=== PATIENT | male | born 1980 | race Caucasian/White ===

== ENCOUNTER 2019-03-12 14:14 | Emergency (ER) | payer OTHER, BC, SELFPAY ==
[2019-03-12 14:15] VITALS: BP 192/121; PULSE 90; RESP 18; TEMP 36.7; O2SAT 97; BMI 40.9
--- NOTE | 2019-03-12 14:30 | CT_ITS ---
STUDY: CT BRAIN WITHOUT CONTRAST REASON FOR EXAM: Male, 38 years old. Headache after a fall RADIATION DOSAGE (If Supplied By Facility): CTDIvol = ( 44.99 ) mGy, DLP = ( 829.85 ) mGycm TECHNIQUE: Transaxial CT imaging of the brain was performed without administration of intravenous contrast material. Individualized dose optimization techniques were used for this CT. COMPARISON: No relevant priors. FINDINGS: Normal soft tissue structures. Normal calvarium. Normal size ventricles and extra-axial spaces for the patient's age. Normal white matter tracts of the cerebral hemispheres. Normal basal ganglia and thalami. Normal brainstem. Normal cerebellum. Tal cisterna magna noted. There is no intracranial hemorrhage. There are no findings of an acute ischemic infarction. Normal visualized paranasal sinuses. CT/Brain/Head without Contrast IMPRESSION: No acute intracranial abnormalities Electronically Signed: Devonte Pacheco MD at 15:16 EDT , Service support ,
--- NOTE | 2019-03-12 14:30 | CT_ITS ---
STUDY: CT FACIAL BONES WITHOUT CONTRAST REASON FOR EXAM: Male, 38 years old. Pain after a fall RADIATION DOSAGE (If Supplied By Facility): CTDIvol = ( 29.38 ) mGy, DLP = ( 547.46 ) mGycm TECHNIQUE: The patient was scanned in a multi detector CT scanner. Sagittal and coronal images were reconstructed. Individualized dose optimization techniques were used for this CT. COMPARISON: None. FINDINGS: Normal soft tissue structures. Normal orbital meza and orbital contents. Normal nasal bones and anterior nasal spine. Normal facial bones. There is no demonstrated fracture. Opacification of the right maxillary sinus noted. The right maxillary sinus is underdeveloped. CT/Sinus/Facial Bone IMPRESSION: No demonstrated facial fracture or suspicious soft tissue swelling Underdeveloped right maxillary sinus with opacification of the right maxillary sinus noted. Electronically Signed: Devonte Pacheco MD at 15:18 EDT , Service support ,
--- NOTE | 2019-03-12 14:30 | RAD_ITS ---
STUDY: X-RAY - RIGHT HAND REASON FOR EXAM: Male, 38 years old. Fourth digit pain TECHNIQUE: 3 view(s) of the hand. COMPARISON: None. FINDINGS: Normal radiocarpal articulation. Normal distal radioulnar joint. Normal visualized carpal bones. Normal carpal articulations Normal carpometacarpal articulation of the thumb. Normal second through fifth carpometacarpal joints. Normal metacarpi. Old healed fifth metacarpal fracture Normal metacarpophalangeal joint of the thumb. Normal interphalangeal joint of the thumb. Normal proximal and distal phalanges of the thumb. Normal metacarpophalangeal joints of the second through fifth fingers. Normal proximal and distal interphalangeal joints of the second through fifth fingers. Normal phalanges of the second through fifth fingers. The soft tissue structures are unremarkable. RAD/Hand Min 3 Views IMPRESSION: Old healed boxer's fracture, no acute findings Electronically Signed: Devonte Pacheco MD at 15:12 EDT , Service support ,
--- NOTE | 2019-03-12 14:31 | ED.DCSUM_ITS ---
History of Present Illness Chief Complaint: Trauma Informant: Patient Onset: Today Narrative: Fall off a working truck prior to arrival. The back of the truck with gait custodial open, was going over a bump when the gate open with him falling out. He tried holding on, right ankle caught in the chain, he hit the back of his head and his left face. No loss of conscious. No visual changes. No nausea or vomiting. Complains of right hand pain and right ankle pain. History of skull surgery in the past due to overgrowth causing compression. Came by private vehicle. No allergies. Past Medical History - Allergies and Home Meds Allergies/Adverse Reactions: Allergies No Known Allergies Allergy (Verified 03/12/19 14:19) Primary Care Physician: NOT,DEFINED [NON-STAFF] - Review of Systems General: Denies: Chills, Fever, Sweats Eyes: Denies: Visual changes - bilaterally, Diplopia ENT: Denies: Rhinorrhea, Sore throat Cardiovascular: Denies: Chest pain, Palpitations Respiratory: Denies: Dyspnea, Cough, Dyspnea on exertion Gastrointestinal: Denies: Abdominal pain, Nausea, Vomiting, Diarrhea, Melena, Hematochezia Genitourinary: Denies: Dysuria, Hematuria, Frequency Musculoskeletal: Reports: Arthralgias. Denies: Back pain, Extremity Pain Skin: Denies: Rash, Wounds Neurological: Denies: Headache, Weakness, Numbness Physical Exam Vital Signs/Narrative: Vital Signs Temp Pulse Resp BP Pulse Ox 03/12/19 14:15 98.1 F 90 18 192/121 H 97 Inital Vital Signs reviewed: Yes General: Well nourished, Well developed, No Acute Distress Head: Normocephalic, Tenderness, - - Tender palpation at the crown with no depression. There is soft tissue depression left frontal that is chronic. No hemotympanum. No cervical neck tenderness. There is minimal tenderness at the left zygomatic region. No proptosis or entrapment. Eyes: Perrl, EOMI ENT: Moist mucous membranes, No rhinorrhea Neck: Supple, Nontender Cardiovascular: Regular rate, Regular rhythm, No murmurs Respiratory: No distress, CTA bilaterally, Chest nontender Abdomen: Soft, Nontender, Nondistended, Normal bowel sounds Back: Nontender, Normal Inspection Extremities: No edema, - - Right upper extremity: Abrasion at the elbow with no tenderness. Abrasion at distal forearm, no bleeding. There is tender palpation distal fourth MCP with no deformities. Skin intact. Right lower extremity: Tender palpation lateral malleolus with slight swelling. Skin intact. No foot tenderness. No knee tenderness. Neurovascular intact distally. Skin: Normal color, - - See above for abrasions, also additional abrasion right flank region, nontender, no bleeding. Neurological: Alert, Oriented x3, Cranial nerves II-XII grossly intact, Normal Strength, Normal Sensation Psychological: Normal affect, Normal Mood Diagnostic/Tx/Re-eval Clinical Impression(s) from Imaging Studies Brain CT 03/12/19 14:30 IMPRESSION: No acute intracranial abnormalities Electronically Signed: Devonte Pacheco MD at 15:16 EDT , Service support , Facial/Sinus 03/12/19 14:30 IMPRESSION: No demonstrated facial fracture or suspicious soft tissue swelling Underdeveloped right maxillary sinus with opacification of the right maxillary sinus noted. Electronically Signed: Devonte Pacheco MD at 15:18 EDT , Service support , Hand X-Ray 03/12/19 14:30 IMPRESSION: Old healed boxer's fracture, no acute findings Electronically Signed: Devonte Pacheco MD at 15:12 EDT , Service support , Ankle X-Ray 03/12/19 14:45 IMPRESSION: Normal x-ray examination of the ankle. Electronically Signed: Devonte Pacheco MD at 15:12 EDT , Service support , Patient treated with oxycodone in the ED. Image studies of the head and face negative. Right hand and right ankle also negative for fracture or dislocation. There is old boxer's fracture right hand. Aircast provided for right ankle. Patient has Motrin at home to use every 6 hours as needed. Appropriate work restrictions were given. Follow-up with [facility]. All questions were answered. ED Disposition - Plan for ED Patient: Disposition: Home or Assisted Living Diagnosis: Closed head injury, Contusion of right hand, Right ankle sprain, Abrasions of multiple sites Instructions: HEAD INJURY, No Wake-Up (Adult), CONTUSION, Hand, Sprain, Ankle, with X-Ray, Abrasion Referrals: NOT,DEFINED [NON-STAFF] - [facility] [GROUP OF PHYSICIANS] - 2 Days Additional Instructions: CT head and face negative. X-ray right hand and right ankle are negative. Use ibuprofen 600 mg every 6 hours as needed.
[2019-03-12] MEDS: oxyCODONE 5 MG Tablet PO (14:40)
--- NOTE | 2019-03-12 14:45 | RAD_ITS ---
STUDY: X-RAY - RIGHT ANKLE REASON FOR EXAM: Male, 38 years old. Pain TECHNIQUE: 3 view(s) of the ankle. COMPARISON: None. FINDINGS: Normal visualized distal tibia and fibula. Normal medial and lateral malleoli. Normal tibiotalar articulation and ankle mortise. Normal visualized talus and calcaneus. The visualized subtalar, talonavicular, calcaneocuboid and tarsal articulations are normal. The soft tissue structures are unremarkable. RAD/Ankle min 3 Views IMPRESSION: Normal x-ray examination of the ankle. Electronically Signed: Devonte Pacheco MD at 15:12 EDT , Service support ,
== END 2019-03-12 16:56 | disposition home or self-care (01) ==
PROVIDERS: Emergency Provider Emergency Medicine
DX: S09.90XA Unspecified injury of head, initial encounter (principal); S60.221A Contusion of right hand, initial encounter; S93.401A Sprain of unspecified ligament of right ankle, initial encounter; S50.311A Abrasion of right elbow, initial encounter; S50.811A Abrasion of right forearm, initial encounter; S30.811A Abrasion of abdominal wall, initial encounter; V89.9XXA Person injured in unspecified vehicle accident, initial encounter; Y93.9 Activity, unspecified; Y92.9 Unspecified place or not applicable
CPT/HCPCS: 70450; 70486; 73130; 73610; 99284

== ENCOUNTER → 2019-04-14 07:09 | Outpatient (CLI) | payer OTHER, SELFPAY ==
[2019-03-28 10:06] VITALS: BMI 40.9
--- NOTE | 2019-04-14 07:10 | MRI_ITS ---
STUDY: MRI RIGHT ANKLE WITHOUT CONTRAST REASON FOR EXAM: Male, 38 years old. Ankle pain and swelling TECHNIQUE: Standardized fat and water weighted pulse sequences were obtained in all 3 orthogonal planes. COMPARISON: X-ray 03/12/2019 FINDINGS: Normal subcutis adipose space. Normal posterior tibialis tendon. Normal flexor digitorum longus tendon. Normal flexor hallucis longus tendon. Normal peroneus longus and brevis tendons. Normal tibialis anterior tendon. Normal extensor hallucis longus tendon. Normal extensor digitorum longus tendons. Normal Achilles tendon and teno-osseous insertion. Normal plantar fascia. Normal plantar calcaneal tubercles. Normal intrinsic muscles of the rearfoot. Normal distal tibiofibular syndesmotic ligamentous complex. Normal lateral ligamentous complex. Normal subtalar ligaments and sinus tarsi. Normal deltoid ligamentous complexes. Normal plantar calcaneonavicular (spring) ligament. Nondisplaced circular fracture of the subchondral anterior tibia with surrounding contusion. Normal talar dome. Normal subtalar articulations. Normal talonavicular articulation. Normal calcaneocuboid articulation. Normal navicular-cuneiform articulations. MRI/Lower Ext Joint Only (Routine) IMPRESSION: Nondisplaced circular fracture of the subchondral anterior tibia with surrounding contusion. Electronically Signed: Juvenal Felix MD at 9:13 EDT Tel , Service support ,
== END ==
PROVIDERS: Referring Provider Physician Assistant Surgical; Visit Provider Physician Assistant Surgical
DX: S93.401A Sprain of unspecified ligament of right ankle, initial encounter (principal)
CPT/HCPCS: 73721

== ENCOUNTER → 2019-06-05 09:23 | Outpatient (CLI) | payer OTHER, SELFPAY ==
[2019-06-05 09:07] VITALS: BMI 40.9
--- NOTE | 2019-06-05 09:26 | RAD_ITS ---
STUDY: X-RAY - RIGHT ANKLE REASON FOR EXAM: Follow-up fracture. TECHNIQUE: 3 view(s) of the ankle. COMPARISON: Radiographs 03/12/2019. 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 Normal visualized distal tibia and fibula. Normal medial and lateral malleoli. Normal tibiotalar articulation and ankle mortise. Normal visualized talus and calcaneus. The visualized subtalar, talonavicular, calcaneocuboid and tarsal articulations are normal. There is mild soft tissue swelling. 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 Electronically Signed: Stephen Reeder MD at 13:26 EDT Tel , Service support ,
== END ==
PROVIDERS: Referring Provider Orthopaedic Surgery; Visit Provider Orthopaedic Surgery
DX: S93.401A Sprain of unspecified ligament of right ankle, initial encounter (principal); S82.201A Unspecified fracture of shaft of right tibia, initial encounter for closed fracture
CPT/HCPCS: 73610

== ENCOUNTER → 2019-06-05 13:27 | Outpatient (CLI) | payer OTHER, SELFPAY ==
[2019-06-05 09:07] VITALS: BMI 40.9
--- NOTE | 2019-06-05 13:30 | VDLE_ITS ---
Reason For Study: pain RIGHT GSV is normal. CFV is compressible, spontaneous, phasic, competent and demonstrates normal augmentation. FV is compressible, spontaneous, phasic, competent and demonstrates normal augmentation. POP V is compressible, spontaneous, phasic, competent and demonstrates normal augmentation. T/P Trunk is compressible. PTV is compressible. Peroneal Vein is dilated and noncompressible. Procedure Exam performed in department. The exam was diagnostic. A preliminary report was called and/or faxed to Dr. Romero. Interpretation Summary Right great saphenous vein appears patent and compressible segmentally. Acute deep venous thrombosis right peroneal vein. Ordering Physician: Barbara Romero Performed By: Tate Donahue RVT
== END ==
PROVIDERS: Referring Provider Orthopaedic Surgery; Visit Provider Orthopaedic Surgery
DX: S82.201A Unspecified fracture of shaft of right tibia, initial encounter for closed fracture (principal); S93.401A Sprain of unspecified ligament of right ankle, initial encounter
CPT/HCPCS: 73610; 93971

== ENCOUNTER 2019-06-08 12:21 | Emergency (ER) | payer OTHER, BC, SELFPAY ==
[2019-06-05 09:07] VITALS: BMI 40.9
[2019-06-08 12:23] VITALS: BP 216/147; PULSE 98; RESP 22; TEMP 36.8; O2SAT 95; BMI 41.3
--- NOTE | 2019-06-08 12:54 | RAD_ITS ---
STUDY: X-RAY - RIGHT ANKLE REASON FOR EXAM: Male, 38 years old. Right ankle pain after falling this morning TECHNIQUE: 3 view(s) of the ankle. COMPARISON: 06/05/2019 FINDINGS: There is diffuse osteopenia. Normal medial and lateral malleoli. Normal tibiotalar articulation and ankle mortise. Obliquely oriented fracture of the superior posterior calcaneus is new since 3 days previous. There is approximately 6 mm of displacement. The visualized subtalar, talonavicular, calcaneocuboid and tarsal articulations are normal. There is soft tissue swelling of the posterior ankle including anterior to the Achilles tendon. RAD/Ankle min 3 Views IMPRESSION: 1. Avulsion fracture (new) of the superior/posterior calcaneus with moderate displacement. 2. Osteopenia. Electronically Signed: Wolf Caraballo MD ([place]) at 13:40 EDT , Service support ,
[2019-06-08] MEDS: Morphine 4 MG/ML Syringe IM (13:15)
--- NOTE | 2019-06-08 14:53 | ED.VISSUMM ---
- ER Visit Summary Date of Service: 06/08/19 Chief Complaint: Right ankle pain History of Present Illness: The patient is a 38 M who presents with right ankle pain that began today. Patient states he had a recent fracture of his ankle and had his cast removed recently. Patient was placed in a walking boot. Patient states he was allowed to start weightbearing as tolerated recently. Patient states today he put some weight on his foot and felt a pop in his right ankle. Patient is concerned that he tore his Achilles tendon. Patient states the pain is sharp and aching. Patient states the pain is worse with movement. Patient admits to some tingling in his toes. Patient admits to some swelling. Patient is on Xarelto for DVT in his right leg. Physical Examination: Vital signs are stable except for an elevated blood pressure of 216/147. Patient is afebrile. Patient is in no acute distress. Musculoskeletal exam reveals tenderness over the posterior aspect of the right ankle. There is tenderness over the Achilles tendon and calcaneus. There is no obvious deformity noted. There is pain with squeezing his calf. Patient states that his DVT is in that area. Patient also states that he has pain in his Achilles area when I squeeze his calf. The calcaneus and heel appears to move when I squeeze his calf. Pedal pulses are equal bilaterally. Sensation is intact to light touch in all digits. Capillary refill is less than 2 seconds in all digits. Test Results: X-rays of the right ankle were obtained. There is an avulsion fracture of the calcaneus. This was interpreted by the radiologist and reviewed by myself. Emergency Department Course and Treatment: Patient was given an injection of morphine here. Patient was still having pain. Patient was given a dose of oxycodone. Case was discussed with Dr. Vail who is covering for Dr. Romero. He recommended placing the patient and a posterior splint with plantarflexion. Patient will follow-up with Dr. Romero in 2 to 3 days. Patient was placed in a well-padded posterior splint using 4 inch Ortho-Glass. Patient was placed in as much plantarflexion as he could tolerate. Patient was given a prescription for a short course of Percocet. Patient understood and was agreeable with the plan. All questions were answered. Disposition: Discharge home Impression: 1. Avulsion fracture right calcaneus This note was generated with [employer] dictation software. It may contain incorrect words, spelling, and punctuation that were not noted in review of the chart prior to signing ED Disposition - Plan for ED Patient: Disposition: Home or Assisted Living Diagnosis: Avulsion fracture of right calcaneus Instructions: FRACTURE, Lower Extremity Prescriptions: Oxycodone HCl/Acetaminophen [Percocet 5/325] 1 tab PO Q6H PRN PRN 3 Days #12 tab PRN Reason: Pain Prescription Printed Referrals: Care Physician,No Primary [Primary Care Provider] - Barbara Romero DO [STAFF PHYSICIAN] - 2 Days Additional Instructions: No weightbearing on your right leg until cleared by Dr. Martines
[2019-06-08] MEDS: oxyCODONE 5 MG Tablet PO (15:16)
[2019-06-08 15:21] VITALS: PULSE 94; RESP 17; O2SAT 98
== END 2019-06-08 15:23 | disposition home or self-care (01) ==
PROVIDERS: Emergency Provider Emergency Medicine
DX: S92.001A Unspecified fracture of right calcaneus, initial encounter for closed fracture (principal); X58.XXXA Exposure to other specified factors, initial encounter; Y93.9 Activity, unspecified; Y92.9 Unspecified place or not applicable; R51 Headache; E66.9 Obesity, unspecified; Z86.718 Personal history of other venous thrombosis and embolism; Z79.01 Long term (current) use of anticoagulants
CPT/HCPCS: 29515; 73610; 96372; 99283

== ENCOUNTER → 2019-07-08 09:22 | Outpatient (CLI) | payer OTHER, SELFPAY ==
[2019-06-10 13:39] VITALS: BMI 41.3
--- NOTE | 2019-07-08 10:00 | MRI_ITS ---
STUDY: MRI RIGHT ANKLE WITHOUT CONTRAST REASON FOR EXAM: Male, 38 years old. Calcaneal fracture TECHNIQUE: Standardized fat and water weighted pulse sequences were obtained in all 3 orthogonal planes. COMPARISON: X-ray 06/08/2019, MRI 04/14/2019 FINDINGS: Normal subcutis adipose space. There is tenosynovitis of the posterior tibialis tendon sheath with an intrinsic normal tendon. Normal flexor digitorum longus tendon. Normal flexor hallucis longus tendon. Normal peroneus longus and brevis tendons. Normal tibialis anterior tendon. Normal extensor hallucis longus tendon. Normal extensor digitorum longus tendons. Insertional Achilles tendinitis but no partial thickness tear. Associated edema of Kager's fat pad consistent with peritendinosis. Acute avulsion fracture of the posterior calcaneus at the Achilles tendon insertion. Normal plantar fascia. Normal plantar calcaneal tubercles. Normal intrinsic muscles of the rearfoot. Normal distal tibiofibular syndesmotic ligamentous complex. There is a complete rupture of the anterior talofibular ligament (ATFL). Normal subtalar ligaments and sinus tarsi. Normal deltoid ligamentous complexes. Normal plantar calcaneonavicular (spring) ligament. Healing nondisplaced fracture line of the anterior aspect of the distal tibia at the tibiotalar joint with spurring of the fracture lines. Normal talar dome. Normal subtalar articulations. Normal talonavicular articulation. Normal calcaneocuboid articulation. Normal navicular-cuneiform articulations. MRI/Lower Ext Joint Only (Routine) IMPRESSION: 1. Acute avulsion of the posterior calcaneal tubercle at the Achilles tendon insertion with insertional Achilles tendinitis and peritendinitis. 2. Complete tear of the anterior talofibular ligament. 3. Healing nondisplaced fracture of the anterior aspect of the distal tibia at the tibiotalar joint. Electronically Signed: Juvenal Felix MD at 11:10 EST Tel , Service support ,
== END ==
PROVIDERS: Referring Provider Podiatrist; Visit Provider Podiatrist
DX: S92.001A Unspecified fracture of right calcaneus, initial encounter for closed fracture (principal); S96.911A Strain of unspecified muscle and tendon at ankle and foot level, right foot, initial encounter; S09.90XD Unspecified injury of head, subsequent encounter; S60.221D Contusion of right hand, subsequent encounter; S90.511D Abrasion, right ankle, subsequent encounter
CPT/HCPCS: 73721; 97110

== ENCOUNTER → 2019-07-23 13:49 | Outpatient (CLI) | payer OTHER, SELFPAY ==
[2019-06-10 13:39] VITALS: BMI 41.3
--- NOTE | 2019-07-23 13:52 | VDLE_ITS ---
Reason For Study: Re-check blood clot RIGHT GSV is normal. CFV is compressible, spontaneous, phasic, competent and demonstrates normal augmentation. FV is compressible, spontaneous, phasic, competent and demonstrates normal augmentation. POP V is compressible, spontaneous, phasic, competent and demonstrates normal augmentation. T/P Trunk is compressible. PTV is compressible. Peroneal vein is now compressible. Procedure Exam performed in department. Compared to study done on 06/05/19. A preliminary report was called and/or faxed to Nick. Interpretation Summary There is no evidence of right lower extremity deep vein thrombosis. Right great saphenous vein appears patent and compressible segmentally. Resolved right peroneal deep venous thrombosis from previous examination of June 05, 2019 Ordering Physician: Barbara Romero Performed By: Sarah Martinez RVT
== END ==
PROVIDERS: Referring Provider Orthopaedic Surgery; Visit Provider Orthopaedic Surgery
DX: S82.201A Unspecified fracture of shaft of right tibia, initial encounter for closed fracture (principal); S93.401A Sprain of unspecified ligament of right ankle, initial encounter
CPT/HCPCS: 93971

== ENCOUNTER 2019-10-14 11:00 | Outpatient (RCR) | payer OTHER, BC, SELFPAY ==
[2019-03-28 10:06] VITALS: BMI 40.9
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
--- NOTE | 2019-04-08 17:12 | HP.OTEVAL ---
Patient's Visit Information KELTON FLOYD is a 38 year old M, referred to Occupational Therapy by DAYRON Blair, with a diagnosis of contusion R hand. 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 Pt continues to be independent with BADL tasks. Lives w/ spouse and has 2 twin girls to care for. Pt R hand domient. Pt states limited with opening variety of containers secondary to pain in R RF. Pt states R RF is always hurting 7-8/10 pain PIP joint. Pt had x-ray R RF, states not broke. Pt shys away from bending and using R RF for all tasks. - Pain R RF 8 Pain Intensity Range: 7, 8 - Objective Objective/Observation: Limited ROM R RF, decreased strength and functional use of R hand, RF - ROM ROM Comments: R RF AROM MP 0'/86' PIP -20/42' DIP 0'/5'. 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 Goal:: Pt will progress w/ AROM R RF PIP joint extension from -20' to 0' and PIP flexion by 25' to increase indep w/ BADL tasks. Goal:: Pt will demo no pain with movement greater than 1/10 by d/c from OT services. Goal:: Pt will be educated on R UE HEP with good understanding and demo 100%x - Rehabilitation General Assessment: Pt demo limited ROM and strength R hand and R RF. Pt has increased pain with all movement of R RF PIP joint. Pt would benefit from direct occupational therapy services to decrease pain with movement of R RF, increase ROM R RF PIP joint, increase strength R hand to increase pts quality of life and return to work. 3x/wk x 4wks Rehabilitation Potential: Good - Anticipated Interventions Anticipated Interventions: A/AAROM/PROM, Strengthening, Edema Control, Massage, Modalities, Orthoses, Joint Protection/Energy Conservation, Fine Motor Coord/Rosalio, ADL Training, Education re assistive Equipment, Education re Diagnosis, Home Program - Visit Plan Frequency: 3x /Week Duration: 4 Weeks General Plan: increase ROM R RF PIP, increase strength R hand, decrease pain and edema R RF, educate on HEP 3x/wk x 4wks TEXT: Thank you for the opportunity to evaluate your patient. For Medicare and Medicare HMO plans, please review the plan of care and approve it. It will need to be FAXED BACK to us at [phone] for Medicare purposes. Please let me know if there are questions or concerns regarding this plan of care. Physician Signature: Date:
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
--- NOTE | 2019-05-06 14:11 | HP.OTDCSUM ---
HP - OT D/C Summary It has been my pleasure to treat KELTON FLOYD under orders from DAYRON Blair, for the diagnosis of contusion R hand for a total of 9 visit(s). Please see the following information for a summary of their discharge status. - Overall Improvement % Improvement: 100 - Objective Objective/Function: right test conductor strength 85#. right RF MCP +5/80 PIP 10/90 DIP +5/65. pt demo ROM WNL and right test conductor strength at functional level. Therapist ed. pt he will cont. to have stiffness of right RF on and off for 6-9 months. Therapist advised pt to cont with ROM/end range stretch to decrease risk of developing ROM limitations. - Goals Patient Goals: Regain Strength, Decrease Pain, Return to Work, Decrease Swelling/Stiffness, Improve Fine Motor Skills, Use Hand/Wrist/Arm Normally Again, Sleep Better, Decrease Tingling/Numbness, Increase ROM, Resume Former Household Responsibilities (Cooking,Cleaning,Yard, etc.), Resume Hobbies Goal:: Pt will progress w/ R hand test conductor strength by 20# to assist w/ opening variety of containers independently. Goal:: Pt will progress w/ AROM R RF PIP joint extension from -20' to 0' and PIP flexion by 25' to increase indep w/ BADL tasks. Goal:: Pt will demo no pain with movement greater than 1/10 by d/c from OT services. Goal:: Pt will be educated on R UE HEP with good understanding and demo 100%x - Plan Plan: D/C - D/C Information Discharge Comments: pt was seen for /12 OT visits following a right hand injury. Pts ROM has returned to PLOF and his functional strength. Pt reports IND. with ADLs and IADLs pt has met goals set in OT and is D/C at this time. If there are questions or concerns regarding this patient's occupational therapy, please fell free to call me at [phone]. Thank you for the referral of this patient. Sincerely, Caprice Villalpando, OTR/L, CHT
--- NOTE | 2019-05-13 12:04 | HP.PTREVAL_ITS ---
DAYRON Blair, It has been my pleasure to treat KELTON FLOYD over the last 12 visits for vestibular. Please see the progress note below for an update on the physical therapy plan of care! Subjective: He is still having PERALTA ( reports that he gets them to the point he is noise sensitive and light sensitive). He reports that the dizziness is better but the PERALTA have not gone away. He has changed his pillow etc and it has not helped. Objective/Function: pt reports more dizziness when he puts his head down... Plan Plan: Hold chart until after Dr appointment. HEP: stare at object and vertical and horiztonal head movements. See back in 1 week. Continue with VOR exercises on the busy background. 3X/ week for 4 weeks until 04-28-19 for sitting to standing progression of smooth pursuits and saccades to work on smooth movement, focus, and no dizziness with HEP. Due to a injured ankle no foam, or standing activites that bother his L ankle. Goals Goal 1:: I HEP Goal Time Frame: 4-6 Weeks Goal Progress: Progressing Goal 2:: Be able to complete horizontal and vetical smooth pursuits in standing for 60 seconds without dizziness, loss of tracking or LOB Goal Time Frame: 4-6 Weeks Goal Progress: Progressing Goal 3:: Be able to complete saccades in standing for 60 seconds without dizziness or LOB or loss of tracking Goal Time Frame: 4-6 Weeks Goal Progress: Progressing Anticipated Interventions Patient/Client Instruction: Educate patient on: Condition For the Purpose of:: To improve muscle performance and motor function, To improve ability to perform ADL's, To increase tolerance to activity/condition/position, To improve performance and independence with ADL's Therapeutic Exercise to Include: Strength training, Balance training, Neuromotor development For the Purpose of:: To improve muscle performance and motor function, To improve ability to perform ADL's, To increase tolerance to activity/condition/ position, To improve performance and independence with ADL's Please do not hesitate to contact me at [phone] by phone or if you have questions or concerns regarding this new plan of care! Sincerely, Kayla Henriquez, MPT
[2019-06-10 13:39] VITALS: BMI 41.3
--- NOTE | 2019-07-03 12:55 | HP.PTREVAL_ITS ---
DAYRON Blair, It has been my pleasure to treat KELTON FLOYD over the last 13 visits for vestibular. Please see the progress note below for an update on the physical therapy plan of care! Subjective: Pt saw a Neurologist ( Dr Lu) and he gave him some pills to take at night for his headaches and he said that he should do vestibular therapy. The pills are helping and he has only had 1 major PERALTA since then that lasted all day. His dizziness is getting better throughout the day. If he raises his head up too fast he will get dizzy. Neurologist thinks that he is not healed completely and wants to see him Aug 05. Pt is back to work light duty. He got out of the boot and a couple days later (jun 08) he broke his heal and is back in the walking boot and scooter as he is NWB. He got osteopenia from beng in the boot and the Dr feels that his achilles was so tight that it snapped. He had a blood clot once he got the cast off as well. Foot is putting in for an MRI because he thinks that he ruptured his achilles as well. He is still doing his vestibular exercises at home. Objective/Function: Pursuit----(Head is still, eyes focused on moving object) (40 seconds)... intensified PERALTA and a little dizzy. Saccades----Eyes move from one object to another speedily without head moving ( 10 seconds and got really blurry). VOR X 1----Head is moving, eyes focused on stationary object (horizontal 3 seconds) the object (X) went out of focus and a little bit of dizziness and then 40 seconds with a little PERALTA and vertical (21 seconds with blurriness and a little bit of dizziness no worse PERALTA). VOR X2----Head is moving, eyes focused on moving object ( in opposite direction of the head) (25 seconds... dizziness and blurry). VOR Cx---Head is moving, eyes focused on object moving in same direction as head (60 seconds with no dizziness but a little increase in PERALTA). Plan Plan: 1X/ week for VOR exercise progression including standing when able. Increase need be.... HEP: stare at object and vertical and horiztonal head movements and saccades in sitting up to 60 sec X 3 3 X/day on flat back ground and then progress to busy background. Goals Goal 1:: I HEP Goal Time Frame: 4-6 Weeks Goal Progress: Progressing Goal 2:: Be able to complete horizontal and vetical smooth pursuits in standing for 60 seconds without dizziness, loss of tracking or LOB Goal Time Frame: 4-6 Weeks Goal Progress: Progressing Goal 3:: Be able to complete saccades in standing for 60 seconds without dizziness or LOB or loss of tracking Goal Time Frame: 4-6 Weeks Goal Progress: Progressing Anticipated Interventions Patient/Client Instruction: Educate patient on: Condition For the Purpose of:: To improve muscle performance and motor function, To improve ability to perform ADL's, To increase tolerance to activity/condition/position, To improve performance and independence with ADL's Therapeutic Exercise to Include: Strength training, Balance training, Neuromotor development For the Purpose of:: To improve muscle performance and motor function, To improve ability to perform ADL's, To increase tolerance to activit y/condition/position, To improve performance and independence with ADL's Please do not hesitate to contact me at [phone] by phone or if you have questions or concerns regarding this new plan of care! Sincerely, Kayla Henriquez MPT
--- NOTE | 2019-07-29 12:43 | HP.PTREVAL ---
DAYRON Blair, It has been my pleasure to treat KELTON FLOYD over the last 16 visits for vestibular. Please see the progress note below for an update on the physical therapy plan of care! Subjective: Dizziness has been better. Pt has a PERALTA and his whole foot hurts today. Pt goes for a doppler tomm on his L calf. Pt has not had any dizziness since last time, PERALTA yes but not dizziness. The meds are helping his PERALTA but have not totally gone away and before they were everyday and now he can go a couple of days and then when it comes back it is really bad. Objective/Function: no horizontal VOR X 1 sitting dizziness but some vertical still pursists Plan Plan: 1X/ week for VOR exercise progression including standing when able. Increase need be.... HEP: stare at object and vertical and horiztonal head movements and saccades in sitting up to 60 sec X 3 3 X/day on flat back ground and then progress to busy background. Goals Goal 1:: I HEP Goal Time Frame: 4-6 Weeks Goal Progress: Progressing Goal 2:: Be able to complete horizontal and vetical smooth pursuits in standing for 60 seconds without dizziness, loss of tracking or LOB Goal Time Frame: 4-6 Weeks Goal Progress: Progressing Goal 3:: Be able to complete saccades in standing for 60 seconds without dizziness or LOB or loss of tracking Goal Time Frame: 4-6 Weeks Goal Progress: Progressing Anticipated Interventions Patient/Client Instruction: Educate patient on: Condition For the Purpose of:: To improve muscle performance and motor function, To improve ability to perform ADL's, To increase tolerance to activity/condition/position, To improve performance and independence with ADL's Therapeutic Exercise to Include: Strength training, Balance training, Neuromotor development For the Purpose of:: To improve muscle performance and motor function, To improve ability to perform ADL's, To increase tolerance to activity/condition/position, To improve performance and independence with ADL's Please do not hesitate to contact me at [phone] by phone or if you have questions or concerns regarding this new plan of care! Sincerely, Kayla Henriquez, MPT
--- NOTE | 2019-08-19 12:31 | HP.PTREVAL_ITS ---
DAYRON Blair, It has been my pleasure to treat KELTON FLOYD over the last 18 visits for vestibular. Please see the progress note below for an update on the physical therapy plan of care! Subjective: Pt can not remember the last time that he had dizziness... His PERALTA are slim to none at this point. Objective/Function: Pt had no dizziness today Plan Plan: At this point the pt is having no dizziness and we will put his chart on hold for now. His c-9 expires at the end of Aug and will hold until then in case dizziness resumes or if he is able to come out of the walking boot and re- test things at that point. Goals Goal 1:: I HEP Goal Time Frame: 4-6 Weeks Goal Progress: Goal Met Goal 2:: Be able to complete horizontal and vetical smooth pursuits in standing for 60 seconds without dizziness, loss of tracking or LOB Goal Time Frame: 4-6 Weeks Goal Progress: Goal Met Goal 3:: Be able to complete saccades in standing for 60 seconds without dizziness or LOB or loss of tracking Goal Time Frame: 4-6 Weeks Goal Progress: Goal Met Anticipated Interventions Patient/Client Instruction: Educate patient on: Condition For the Purpose of:: To improve muscle performance and motor function, To improve ability to perform ADL's, To increase tolerance to activity/condition/position, To improve performance and independence with ADL's Therapeutic Exercise to Include: Strength training, Balance training, Neuromotor development For the Purpose of:: To improve muscle performance and motor function, To improve ability to perform ADL's, To increase tolerance to activity/condition/position, To improve performance and independence with ADL's Please do not hesitate to contact me at [phone] by phone or Fax: if you have questions or concerns regarding this new plan of care! Sincerely, BARBI Jade
--- NOTE | 2019-10-14 11:41 | HP.PTREVAL_ITS ---
DAYRON Blair, It has been my pleasure to treat KELTON FLOYD over the last 18 visits for vestibular. Please see the progress note below for an update on the physical therapy plan of care! Subjective: Pt can not remember the last time that he had dizziness... His PERALTA are slim to none at this point. Objective/Function: Pt had no dizziness today Plan Plan: At this point the pt is having no dizziness and we will put his chart on hold for now. His c-9 expires at the end of Aug and will hold until then in case dizziness resumes or if he is able to come out of the walking boot and re- test things at that point. Goals Goal 1:: I HEP Goal Time Frame: 4-6 Weeks Goal Progress: Goal Met Goal 2:: Be able to complete horizontal and vetical smooth pursuits in standing for 60 seconds without dizziness, loss of tracking or LOB Goal Time Frame: 4-6 Weeks Goal Progress: Goal Met Goal 3:: Be able to complete saccades in standing for 60 seconds without dizziness or LOB or loss of tracking Goal Time Frame: 4-6 Weeks Goal Progress: Goal Met Anticipated Interventions Patient/Client Instruction: Educate patient on: Condition For the Purpose of:: To improve muscle performance and motor function, To improve ability to perform ADL's, To increase tolerance to activity/condition/position, To improve performance and independence with ADL's Therapeutic Exercise to Include: Strength training, Balance training, Neuromotor development For the Purpose of:: To improve muscle performance and motor function, To improve ability to perform ADL's, To increase tolerance to activity/condition/position, To improve performance and independence with ADL's Please do not hesitate to contact me at [phone] by phone or Fax: if you have questions or concerns regarding this new plan of care! Sincerely, BARBI Jade
--- NOTE | 2019-10-28 12:00 | HP.PTDCSUM_ITS ---
HP - PT D/C Summary It has been my pleasure to treat KELTON FLOYD referred by DAYRON Blair, with the diagnosis of vestibular for a total of 18 visit(s). Discharge Date: Please see the following information for a summary of their discharge status. - Subjective Subjective: Pt can not remember the last time that he had dizziness... His PERALTA are slim to none at this point. - Pain headache Pain Intensity (Out of 10): 6 R heel pain Pain Intensity (Out of 10): 7 - Overall Improvement % Improvement: 100 - Objective Objective/Function: Pt had no dizziness today - Goals Goal 1:: I HEP Goal Progress: Goal Met Goal 2:: Be able to complete horizontal and vetical smooth pursuits in standing for 60 seconds without dizziness, loss of tracking or LOB Goal Progress: Goal Met Goal 3:: Be able to complete saccades in standing for 60 seconds without dizziness or LOB or loss of tracking Goal Progress: Goal Met - Plan Plan: At this point the pt is having no dizziness and we will put his chart on hold for now. His c-9 expires at the end of Aug and will hold until then in case dizziness resumes or if he is able to come out of the walking boot and re- test things at that point. - D/C Information If there are questions or concerns regarding this patient's physical therapy, please feel free to call me at [phone]. Thank you for the referral of this patient. Sincerely, Kayla Henriquez, MPT
== END 2019-10-14 19:00 | disposition home or self-care (01) ==
LOC: PT 11:00
PROVIDERS: Referring Provider Physician Assistant Surgical; Visit Provider Physician Assistant Surgical
DX: S09.90XD Unspecified injury of head, subsequent encounter (principal); S60.221D Contusion of right hand, subsequent encounter; S90.511D Abrasion, right ankle, subsequent encounter
CPT/HCPCS: 97016; 97035; 97110; 97140; 97161; 97164; 97165; 97166; 97168; 97530

== ENCOUNTER 2019-12-17 10:00 | Outpatient (RCR) | payer OTHER, BC, SELFPAY ==
[2019-08-01 16:14] VITALS: BMI 41.3
--- NOTE | 2019-11-17 09:49 | HP.PTREVAL ---
Abilio Cheema, TITO, It has been my pleasure to treat KELTON FLOYD over the last 25 visits for . Please see the progress note below for an update on the physical therapy plan of care! Subjective: Pt has been in his shoe for a full week and he feels weak but the pain is 5-6/10. He got a cortizone shot and has felt better. He RTD on and might get another cortizone shot ( it will be a month). He is doing a blue band at home with ankle exercises. Objective/Function: R ankle AROM: DF 5 degrees, PF 32 degrees, INV 40 degrees, and EV 15 degrees. Pt is able to SLB X 15 seconds before LOB on the R. Pt still walk with a slight antalgic gait Plan Plan: 2X/ week for 4 weeks until 4-30-20 per C-9 for ankle ROM, strengthening, gait, Balance and proprioception, R LE strengtheing with HEP and US as needed. Goals Goal 1:: Walk without an antalgic gait Goal Time Frame: 2-4 Weeks Goal 2:: Decrease R ankle pain to 2/10 with ADL's Goal Time Frame: 2-4 Weeks Goal 3:: Increase LE strength to 4+/5 R ankle Goal Time Frame: 2-4 Weeks Goal 4:: Increase R ankle DF to 10 degrees Goal Time Frame: 2-4 Weeks Anticipated Interventions Please do not hesitate to contact me at [phone] by phone or if you have questions or concerns regarding this new plan of care! Sincerely, Kayla Henriquez, MPT
--- NOTE | 2019-12-17 11:02 | HP.PTEVAL_ITS ---
Patient's Visit Information KELTON FLOYD is a 39 year old M referred to Physical Therapy by Abilio Cheema DPM with a diagnosis of . Date of Evaluation: Physical Therapist: BARBI Jade - Visit Plan Plan: 2X/ week for 4 weeks until 4-30-20 per C-9 for ankle ROM, strengthening, gait, Balance and proprioception, R LE strengtheing with HEP and US as needed. - Pain R ankle Pain Intensity (Out of 10): 2 Comment: achy - Goals Goal 1:: Walk without an antalgic gait Goal Time Frame: 2-4 Weeks Goal 2:: Decrease R ankle pain to 2/10 with ADL's Goal Time Frame: 2-4 Weeks Goal 3:: Increase LE strength to 4+/5 R ankle Goal Time Frame: 2-4 Weeks Goal 4:: Increase R ankle DF to 10 degrees Goal Time Frame: 2-4 Weeks - Anticipated Interventions Thank you for the opportunity to evaluate your patient. For Medicare and Medicare HMO plans, please review the plan of care and approve it. It will need to be FAXED BACK to us at [phone] for Medicare purposes. For Medicare only, by signing this I certify the plan of care. Please let me know if there are questions or concerns regarding this plan of care. Physician Signature: Date:
--- NOTE | 2020-01-09 13:15 | HP.PTDCSUM ---
It has been my pleasure to treat KELTON FLOYD referred by Dr. Abilio Cheema DPM, with the diagnosis of for a total of 40 visit(s). Discharge Date: 12/17/19 Please see the following information for a summary of their discharge status. Subjective: Pt reports that he is just achy... reports 2-3/10. RTD tommorrow. R ankle Pain Intensity (Out of 10): 2 % Improvement: 100 Objective/Function: Pt still walks with a slight antalgic gait... decreased stance time on the R LE. R ankle DF 10 degrees Goal 1:: Walk without an antalgic gait Goal Progress: Progressing Goal 2:: Decrease R ankle pain to 2/10 with ADL's Goal Progress: Goal Met Goal 3:: Increase LE strength to 4+/5 R ankle Goal Progress: Goal Met Goal 4:: Increase R ankle DF to 10 degrees Goal Progress: Goal Met Plan: 2X/ week for 4 weeks until 4-30-20 per C-9 for ankle ROM, strengthening, gait, Balance and proprioception, R LE strengtheing with HEP and US as needed. Discharge Comments: DC PT If there are questions or concerns regarding this patient's physical therapy, please feel free to call me at [phone]. Thank you for the referral of this patient. Sincerely, Kayla Henriquez, MPT
== END 2019-12-17 19:00 | disposition home or self-care (01) ==
LOC: PT 10:00
PROVIDERS: Referring Provider Podiatrist; Visit Provider Podiatrist
DX: S92.001D Unspecified fracture of right calcaneus, subsequent encounter for fracture with routine healing (principal); I82.401 Acute embolism and thrombosis of unspecified deep veins of right lower extremity
CPT/HCPCS: 97035; 97110

== ENCOUNTER 2020-03-01 06:40 | Emergency (ER) | payer BC, SELFPAY ==
[2019-08-01 16:14] VITALS: BMI 41.3
[2020-03-01 06:41] VITALS: PULSE 102; RESP 18; TEMP 36.2; O2SAT 96; BMI 44.6
[2020-03-01 06:45] VITALS: BP 199/132
--- NOTE | 2020-03-01 06:47 | CT_ITS ---
STUDY: CT ABDOMEN AND PELVIS WITHOUT CONTRAST REASON FOR EXAM: Male, 39 years old. RLQ PAIN, ABD PAIN, CONSTIPATION, NO HX KS, NO PREV SURG RADIATION DOSAGE (If Supplied By Facility): CTDIvol = ( 23.9 ) mGy, DLP = ( 1206.13 ) mGycm TECHNIQUE: Transaxial images were obtained from the dome of the diaphragm to the symphysis pubis without oral contrast, and without intravenous contrast. Sagittal and coronal images were reconstructed. Individualized dose optimization techniques were used for this CT. COMPARISON: None. FINDINGS: The visualized lung bases are unremarkable. The visualized portions of the heart are within normal limits. There is decreased attenuation of the liver consistent with steatosis. Normal gallbladder and extrahepatic biliary system. Normal spleen. Normal pancreas. Normal bilateral adrenal glands. There is 9 mm calculus in the right ureterovesicular junction with moderate upstream hydroureter and hydronephrosis. Several additional nonobstructive right renal calculi.. There is a tiny nonobstructive left renal nonobstructive calculi. Normal visualized stomach. Normal small intestine. Normal colon. The appendix is visualized and appears normal. Normal abdominal aorta. Normal inferior vena cava. Normal retroperitoneum. Normal urinary bladder. Normal abdominal wall. Normal osseous structures. CT/Abdomen/Pelvis without Cont IMPRESSION: 9 mm calculus within the right ureterovesicular junction with moderate upstream hydroureter and hydronephrosis. Electronically Signed: Faheem Berrios, at 7:22 EDT Tel , Service support ,
[2020-03-01] MEDS: Morphine 4 MG/ML Syringe IV (06:56)
[2020-03-01] MEDS: Ondansetron 4 MG/2 ML Vial IV (06:57)
[2020-03-01 07:00] LABS: Absolute Lymphocyte Count 1.14 X10^3/uL (0.83-4.51); Absolute Neutrophil Count 6.5 X10^3/uL (2.0-7.7); Basophil# 0.06 X10^3/uL; Basophil% 0.7 % (0-1); Eosinophil# 0.38 X10^3/uL; Eosinophils% 4.1 % (0-5); Hemoglobin 15.9 g/dL (13.0-16.5); Lymphocyte # 1.14 X10^3/ul (4.0); Lymphocyte % 12.4 % (19-41); Mean Corp Hgb Conc 33.8 g/dL (32-36); Mean Corpuscular Hgb 27.6 pg (27.0-32.0); Mean Corpuscular Volume 81.6 fL (80-94); Mean Platelet Vol. 9.4 fl (6.2-12.0); Monocyte# 1.04 X10^3/uL; Monocyte% 11.4 % (0-10); NRBC Flagged by Analyzer 0 % (0-5); Platelet Count 229 K/mm3 (150-450); RBC Distribution Width CV 12.8 % (11.6-14.6); RBC Distribution Width SD 37.2 fl (35.1-43.9); Red Blood Count 5.76 M/mm3 (4.6-6.2); White Blood Count 9.2 K/mm3 (4.4-11.0)
[2020-03-01] MEDS: 0.9% Normal Saline 1,000 ML 125 ML IV (07:00)
--- NOTE | 2020-03-01 07:07 | ED.DCSUM_ITS ---
History of Present Illness Chief Complaint: Constipation Narrative: Patient presenting for evaluation secondary to abdominal pain. Patient reports that since he has been dealing with right lower quadrant abdominal pain. He states that it is a continuous type pain, and is worse with palpation and movement. Patient denies any nausea or vomiting. He denies any dysuria. He denies any hematuria. He does report that he has been dealing with constipation over the course of that time. He simply states he feels like he does not have to go. Patient is never had any prior similar episodes in the past. He denies any history of abdominal surgeries. Patient had a history of a provoked DVT around a year ago secondary to an injury, and is no longer on anticoagulants. Review of systems otherwise negative. Past Medical History - Allergies and Home Meds Allergies/Adverse Reactions: Allergies bee venom protein (honey bee) Allergy (Verified 06/08/19 12:23) Hives venom-wasp Allergy (Verified 06/08/19 12:23) Hives Primary Care Physician: Eliezer Bettencourt MD [STAFF PHYSICIAN] - Keep Sendy appointment Past Medical History: - - Provoked DVT Surgical History: - - Orthopedic surgery Lives: Spouse/ Significant Other Smoking Status: Never smoker Alcohol: None Drugs: None Review of Systems All systems negative except as indicated General: Denies: Chills, Fever, Sweats Eyes: Denies: Visual changes - bilaterally, Diplopia ENT: Denies: Rhinorrhea, Sore throat Cardiovascular: Denies: Chest pain, Palpitations Respiratory: Denies: Dyspnea, Cough, Dyspnea on exertion Gastrointestinal: Reports: Abdominal pain, Constipation Genitourinary: Denies: Dysuria, Hematuria, Frequency Musculoskeletal: Denies: Back pain, Extremity Pain Skin: Denies: Rash, Wounds Neurological: Denies: Headache, Weakness, Numbness Physical Exam Vital Signs/Narrative: Vital Signs Temp Pulse Resp BP Pulse Ox 03/01/20 06:45 199/132 H 03/01/20 06:41 97.1 F L 102 H 18 96 Inital Vital Signs reviewed: Yes General: Well nourished, Well developed, Obese, No Acute Distress Head: Normocephalic, Atraumatic Eyes: Perrl, EOMI ENT: Moist mucous membranes, No rhinorrhea Neck: Supple, Nontender Cardiovascular: Regular rate, Regular rhythm, No murmurs Respiratory: No distress, CTA bilaterally, Chest nontender Abdomen: Soft, Nondistended, Normal bowel sounds, Tender - Minimal right lower quadrant tenderness with no guarding or rebound. No palpable masses. Positive obturator sign. Back: Nontender, Normal Inspection Extremities: Nontender, No edema Skin: Normal color, No rash Neurological: Alert, Oriented x3, Cranial nerves II-XII grossly intact, Normal Strength, Normal Sensation Psychological: Normal affect, Normal Mood Diagnostic/Tx/Re-eval Clinical Impression(s) from Imaging Studies Abdomen/Pelvis CT 03/01/20 06:47 IMPRESSION: 9 mm calculus within the right ureterovesicular junction with moderate upstream hydroureter and hydronephrosis. Electronically Signed: Faheem Berrios, at 7:22 EDT Tel , Service support , Laboratory Data 03/01/20 03/01/20 06:52 06:52 WBC 9.2 RBC 5.76 Hgb 15.9 Hct 47.0 MCV 81.6 MCH 27.6 MCHC 33.8 RDW Std Deviation 37.2 RDW Coeff of Mariann 12.8 Plt Count 229 MPV 9.4 Immature Gran % (Auto) 0.400 Neut % (Auto) 71.0 H Lymph % (Auto) 12.4 L [place] % (Auto) 11.4 H Eos % (Auto) 4.1 Baso % (Auto) 0.7 Absolute Neuts (auto) 6.5 Absolute Lymphs (auto) 1.14 Nucleated RBC % 0 Sodium 140 Potassium 4.0 Chloride 107 Carbon Dioxide 28.0 Anion Gap 5 BUN 19 H Creatinine 1.73 H Estim Creat Clear Calc 57.89 Est GFR (MDRD) Af Amer 57 L Est GFR (MDRD) Non-Af 47 L BUN/Creatinine Ratio 11.0 Glucose 130 H Calcium 8.4 L - Medical Decision Making Patient presented secondary to right-sided flank pain. IV was established patient was given morphine and Zofran. Laboratory studies were obtained. CBC unremarkable, chemistry shows the patient to have elevation of creatinine to 1.7 no baseline creatinine for which to compare. He was hypertensive potentially secondary to pain. CT abdomen and pelvis demonstrated evidence of the patient having a right-sided 9 mm UVJ ureteral stone with associated hydronephrosis. Case discussed with urology and due to the patient's overall well appearance, he will be discharged with pain medication with plans for lithotripsy in 2 days on Sunday. Urinalysis will be obtained, patient will be dispositioned home with Percocet for pain control and instructions on signs and symptoms for which to return. ED Disposition - Plan for ED Patient: Disposition: Home or Assisted Living Diagnosis: Urolithiasis, FLORES (acute kidney injury), Hypertension Instructions: ED Renal Stone w Colic Prescriptions: Oxycodone HCl/Acetaminophen [Percocet 5/325] 1 tab PO Q6H PRN PRN 3 Days #12 tab PRN Reason: Pain Prescription Printed Referrals: Eliezer Bettencourt MD [STAFF PHYSICIAN] - Keep Sendy appointment
[2020-03-01 07:13] LABS: Anion Gap 5 (5-15); BUN 19 mg/dL (7-18); Calcium,Total 8.4 mg/dL (8.5-10.1); Chloride 107 mmol/L (98-107); Creatinine, Serum 1.73 mg/dL (0.70-1.30); EST Glomerular Filtration Rate 47 mL/min (>60); Est Glom Filt Rate - Afr Amer 57 mL/min (>60); Estimated Creatinine Clearance 57.89 ml/min; Glucose 130 mg/dL (74-106); Sodium Level 140 mmol/L (136-145)
--- NOTE | 2020-03-01 07:24 | ED.RN ---
dr corrina collins for dr oviedo
[2020-03-01] MEDS: 0.9% Normal Saline 1,000 ML 999 ML IV ×2 (07:41→08:51)
--- NOTE | 2020-03-01 07:44 | PCM.CONS.U ---
Problem List (1) Right ureteral calculus Status: Acute Reason for Consult Date of Consultation: 03/01/20 Reason for Consultation: Obstructing right ureteral calculi elevated kidney function acute kidney injury History of Present Illness: The patient is a 39 year old male who is relatively healthy presented to the emergency room with severe right flank pain CAT scan was done demonstrated 1 cm stone distal right ureter with hydronephrosis also elevated creatinine. His pain is now under control plan is to discharge home today and will add him onto the schedule for surgery this Sunday. We will do a virus luis test as well. Past Medical History Past Medical History (Chronic Problems): Chronic Problems (Last Reviewed 05/20/19 @ 10:13 by Nisha Schmid) Hypertension (Chronic) Medical History: Medical History (Last Reviewed 03/01/20 @ 07:[address] Eliezer Bettencourt MD) Arthritis M19.90 Gout M10.9 Severe headache R51 HTN (hypertension) I10 Allergies bee venom protein (honey bee) Allergy (Verified 06/08/19 12:23) Hives venom-wasp Allergy (Verified 06/08/19 12:23) Hives Home Medications: Ambulatory Orders Medication Instructions Recorded Oxycodone HCl/Acetaminophen 1 tab PO Q6H PRN PRN 3 Days #12 tab 03/01/20 [Percocet 5/325] Surgical History: Surgical History (Last Reviewed 03/01/20 @ 07:[address] 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 Surgical History: - - Orthopedic surgery Lives: Spouse/ Significant Other Smoking Status: Never smoker Alcohol: None Drugs: None Review of Systems Constitutional: Denies: Chills, Fever, Weight Change HEENT: Denies: Head Aches, Sinus Congestion, Sinus Drainage Cardiovascular: Denies: Chest Pain, Palpitations Respiratory: Denies: Cough, Shortness of breath at rest, Sputum production Gastrointestinal: Denies: Abdominal Pain, Nausea, Vomiting Genitourinary: Denies: Dysuria Musculoskeletal: Denies: Joint Pain, Joint Tenderness Skin: Denies: Rash, Wounds Neurological: Denies: Numbness, Tingling, Focal weakness Psychiatric: Denies: Anxiety, Depression, Homicidal Ideations, Suicidal Ideations Hematologic/ Lymphatic: Denies: Easy Bruising, Easy Bleeding Physical Exam - Physical Exam Vital Signs Temp 97.1 F L 03/01/20 06:41 Pulse 102 H 03/01/20 06:41 Resp 18 03/01/20 06:41 BP 199/132 H 03/01/20 06:45 Pulse Ox 96 03/01/20 06:41 Intake & Output 02/28/20 02/29/20 03/01/20 23:59 23:59 23:59 Intake Total 85.42 / 85.42 Balance 85.42 / 85.42 Weight: 137.2 kg Intake: Intake, IV Amount 85.42 / 85.42 0.9% Normal Saline 1,000 ML @ 85.42 / 85.42 125 mls/hr IV .Q8H [facility] Rx#: [id number] General: Alert HEENT: Atraumatic Oral: Moist Mucosa Neck: Supple Lungs: Normal air movement Cardiovascular: Regular rate Abdomen: Bowel Sounds Present, Soft Rectal: Exam deferred Laboratory Tests Past 24 Hrs 03/01/20 03/01/20 06:52 06:52 WBC 9.2 RBC 5.76 Hgb 15.9 Hct 47.0 MCV 81.6 MCH 27.6 MCHC 33.8 RDW Std Deviation 37.2 RDW Coeff of Mariann 12.8 Plt Count 229 MPV 9.4 Immature Gran % (Auto) 0.400 Neut % (Auto) 71.0 H Lymph % (Auto) 12.4 L [place] % (Auto) 11.4 H Eos % (Auto) 4.1 Baso % (Auto) 0.7 Absolute Neuts (auto) 6.5 Absolute Lymphs (auto) 1.14 Nucleated RBC % 0 Sodium 140 Potassium 4.0 Chloride 107 Carbon Dioxide 28.0 Anion Gap 5 BUN 19 H Creatinine 1.73 H Estim Creat Clear Calc 57.89 Est GFR (MDRD) Af Amer 57 L Est GFR (MDRD) Non-Af 47 L BUN/Creatinine Ratio 11.0 Glucose 130 H Calcium 8.4 L Assessment/Plan All Active Problems (Last Reviewed 05/20/19 @ 10:13 by Nisha Schmid) Urolithiasis (Acute) FLORES (acute kidney injury) (Acute) Right ureteral calculus (Acute) Closed right tibial fracture (Acute) Sprain of unspecified ligament of right ankle, initial encounter (Acute) Abrasion, right ankle, initial encounter (Acute) Contusion of right hand, initial encounter (Acute) Injury of head (Acute) 39-year-old male plan to proceed with right ureteroscopy laser lithotripsy stone balloon dilation and stent placement this coming Sunday he will be discharged home today from the emergency room with pain medicine and will run a virus test on him and preoperative preparation. He was agreeable with the plan will set him up for this Sunday to be discharged from the ER with pain control etc.
[2020-03-01 08:45] VITALS: RESP 18
[2020-03-01 08:46] LABS: Bacteria 0 SEEN /hpf (None Seen); Mucous, Urine 0 SEEN /hpf (<or=2+); Squamous Epithelial Cells - UA 0 SEEN /hpf (0-5); White Blood Cells 0 SEEN /hpf (0-5)
[2020-03-01 08:54] LABS: Color, Urine Yellow (Yellow); Glucose, Dipstick Normal (Normal); Ketone-Dipstick Negative (Negative); Leukocyte Esterase-Dipstick Negative /ul (Negative); Nitrite-Dipstick Negative (Negative); Occult Blood-Urine 10 /ul (Negative); Protein-Dipstick 15 mg/dl (Negative); Urine Bilirubin Dipstick Negative (Negative); Urine Clarity Sl. Cloudy (Clear); Urine Urobilinogen Normal (Normal)
[2020-03-01 09:08] LABS: Red Blood Cells-Urine 0-5 SEEN /hpf (0-5)
== END 2020-03-01 10:22 | disposition home or self-care (01) ==
PROVIDERS: Emergency Provider Emergency Medicine
DX: N13.2 Hydronephrosis with renal and ureteral calculous obstruction (principal); N17.9 Acute kidney failure, unspecified; I10 Essential (primary) hypertension; K59.00 Constipation, unspecified; E66.9 Obesity, unspecified; M10.9 Gout, unspecified; M19.90 Unspecified osteoarthritis, unspecified site; Z86.718 Personal history of other venous thrombosis and embolism
CPT/HCPCS: 74176; 80048; 81001; 85025; 87086; 87635; 96361; 96374; 96375; 99284; G2023; J7030; A4216; J2405; U0003

== ENCOUNTER 2020-03-03 10:00 | Observation (INO) | payer BC, SELFPAY ==
[2020-03-03] VITALS (20 sets, daily range): BP systolic 131–209; BP diastolic 81–139; PULSE 69–91; RESP 16–24; TEMP 36.3–37.2; O2SAT 93–100; BMI 44.5; BMI 44.6
[2020-03-03] MEDS: Lactated Ringers 1,000 ML 100 ML IV ×2 (07:53→14:53)
--- NOTE | 2020-03-03 08:25 | SUR.PREOP ---
0815 bp 191/118 in the RUE LYING DOWN
--- NOTE | 2020-03-03 08:37 | PCM.HP.STD ---
History of Present Illness Date of Admission: 03/03/20 Chief Complaint: Right ureteral calculi The patient is a 39 year old male who presented to the emergency room with a large stone in the distal right ureter about a centimeter in size today we can proceed with laser lithotripsy balloon dilation and stent placement on the right side. Past Medical History Medical History: Medical History (Last Reviewed 03/03/20 @ 08:[address] Eliezer Bettencourt MD) Arthritis M19.90 Gout M10.9 Severe headache R51 HTN (hypertension) I10 Allergies bee venom protein (honey bee) Allergy (Verified 03/03/20 07:26) Hives venom-wasp Allergy (Verified 03/03/20 07:26) Hives Home Medications: Ambulatory Orders Medication Instructions Recorded Oxycodone HCl/Acetaminophen 1 tab PO Q6H PRN PRN 3 Days #12 tab 03/01/20 [Percocet 5/325] Surgical History: Surgical History (Last Reviewed 03/01/20 @ 07:[address] 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 Surgical History: - - Orthopedic surgery Smoking Status: Never smoker Tobacco Use: Non-smoker Review of Systems Constitutional: Denies: Chills, Fever, Weight Change HEENT: Denies: Head Aches, Sinus Congestion, Sinus Drainage Cardiovascular: Denies: Chest Pain, Palpitations Respiratory: Denies: Cough, Shortness of breath at rest, Sputum production Gastrointestinal: Denies: Abdominal Pain, Nausea, Vomiting Genitourinary: Denies: Dysuria Musculoskeletal: Denies: Joint Pain, Joint Tenderness Skin: Denies: Rash, Wounds Neurological: Denies: Numbness, Tingling, Focal weakness Psychiatric: Denies: Anxiety, Depression, Homicidal Ideations, Suicidal Ideations Hematologic/ Lymphatic: Denies: Easy Bruising, Easy Bleeding VTE Information - Inpt Only VTE Present on Admission: No - Physical Exam Vitals/I&O's: Vital Signs Temp Pulse Resp BP Pulse Ox 98.3 F 86 18 204/133 H 98 03/03/20 07:27 03/03/20 07:27 03/03/20 07:27 03/03/20 07:27 03/03/20 07:27 Oxygen Delivery Method Room Air Weight: 136.9 kg Body Mass Index (BMI) 44.5 General: Alert, Oriented x3, Cooperative HEENT: Atraumatic, PERRLA, EOMI, Normocephalic Neck: Supple, No JVD, Negative Carotid Bruits Lungs: Clear to auscultation, Normal air movement Cardiovascular: Regular rate, No murmurs Abdomen: Bowel Sounds Present, Soft, Non Tender Extremities: No edema, Capillary Refill Less than 3 Seconds Skin: No rashes, No breakdown Musculoskeletal: No Tenderness to Palpation of Joints or Extremities Neurological: Cranial nerves II-XII grossly intact Psych/Mental Status: Normal Affect, Appropriate Current Medications Lactated Ringer's () 1,000 mls @ 100 mls/hr IV .Q10H [facility] Last Admin: 03/03/20 07:53 Dose: 100 mls/hr Documented by: Assessment/Plan All Active Problems (Last Reviewed 03/03/20 @ 08:[address] Eliezer Bettencourt MD) Right ureteral calculus (Acute) Closed right tibial fracture (Acute) Sprain of unspecified ligament of right ankle, initial encounter (Acute) Abrasion, right ankle, initial encounter (Acute) Contusion of right hand, initial encounter (Acute) Injury of head (Acute) Plan to proceed with right ureteroscopy laser lithotripsy of stone and stent placement.
--- NOTE | 2020-03-03 08:39 | DCINST_ITS ---
Discharge Diet: No Restrictions, Light diet - advance as tolerated Discharge Activity: Return to Normal Activity, May Not Drive - for 2 days., May not drive while taking narcotic pain medications. Additional Activity Instructions:: Please be aware that pain medications may cause nausea. You should typically eat light foods as you take your pain medication. Pain medication may cause constipation, if this is a problem for you, please discuss with your doctor. Call your doctor if you observe: Fever of 101 or Higher Allergies/Adverse Reactions: Allergies bee venom protein (honey bee) Allergy (Verified 03/03/20 07:26) Hives venom-wasp Allergy (Verified 03/03/20 07:26) Hives Medications to take at Discharge Oxycodone HCl/Acetaminophen [Percocet 5/325] 1 tab PO Q6H PRN PRN 3 Days #12 tab 03/01/20 Acetaminophen [Tylenol Extra Strength] 500 mg PO Q4H PRN PRN #20 tab 03/03/20 Ibuprofen 600 mg PO Q6H PRN PRN #20 tab 03/03/20 Primary Care Physician: Care Physician,No Primary [Primary Care Provider] - Test Results: Test results from this visit will be discussed in further detail at your follow- up appointment, if applicable. Please Follow Up With: Eliezer Bettencourt MD When: please call to make an appointment- next week to remove stent or check up
[2020-03-03] MEDS: Lidocaine Jelly 2% 20 ML Syringe (URO-JET) 20 APPLIC (09:11)
--- NOTE | 2020-03-03 09:19 | PCM.OPRPT ---
Report of Operation Date of Procedure: 03/03/20 Pre-Operative Diagnosis: Obstructing right ureteral calculus uncontrolled high blood pressure Post-Operative Diagnosis: Same Surgery/Procedure Performed:: Cystoscopy right stent placement Description of Surgical Findings:: 39-year-old male who presented to the hospital for treatment of a distal stone that is causing obstruction of his right kidney in the preoperative setting his blood pressure was fairly high we thought perhaps this is from some pain he was treated with pain medicine states that his pain was relieved but still his blood pressure was extremely high with diastolics above 120 so because of this in consultation with anesthesiology we decided just to do a MAC local sedation place a stent to alleviate the obstruction temporized the situation and he will need to have a full medical work-up of his blood pressure under control before he can go general anesthesia to relieve and treat the stone with lithotripsy. Patient was taken back to the operating room at the smooth induction of MAC local is placed upon the table the penis and testicles were prepped and draped in usual sterile fashion, placed lidocaine jelly into the urethra, identified the right ureteral orifice with a cystoscopy. The penis and testicles were prepped and draped in usual fashion. The right ureteral orifice was cannulated with a Glidewire and can feel the stone against the wire and then the wire went up past the stone up into the kidney and then over the wire advanced a stent a 6 [place] by 26 cm stent stent: The kidney bladder good position and then drained the bladder and the patient's anesthetic was being reversed given his extremely high blood pressure we recommended just a stent placement today-goal medical therapy and treatment of his high blood pressure before we can bring him back for surgery. Type of Anesthesia:: General Drains: stent right - Admit VTE Documentation VTE Present on Admission: No VTE Mechan Device Prophylaxis: SCD's
--- NOTE | 2020-03-03 09:51 | EKG12_ITS ---
Test Reason : EKG CHANGES Blood Pressure : / mmHG Vent. Rate : 077 BPM Atrial Rate : 077 BPM P-R Int : 144 ms QRS Dur : 072 ms QT Int : 364 ms P-R-T Axes : 046 053 001 degrees QTc Int : 411 ms Normal sinus rhythm Septal infarct , age undetermined T wave abnormality, consider lateral ischemia Abnormal ECG No previous ECGs available Confirmed by JOSE HA, CARLITOS ([id number]), editor city NICOLASA WOODRUFF ([id number]) on 03/05/2020 9:19:33 AM Referred By: Eliezer Bettencourt Confirmed By:MARY GARCIA MD
--- NOTE | 2020-03-03 10:03 | PCM.CONS.GEN ---
Problem List (1) Accelerated hypertension Status: Acute (2) Right ureteral calculus Status: Acute (3) Contusion of right hand, initial encounter Status: Acute Reason for Consult Date of Consultation: 03/03/20 Reason for Consultation: Management of postoperative hypotension History of Present Illness: The patient is a 39 year old M who underwent cystoscopy with right stent placement on account of obstructing right ureteral calculus by Dr. Bettencourt 03/03/2020. Patient was found to have markedly elevated blood pressure in the PACU. Initial treatment administered in the PACU did not result in much improvement of patient blood pressure. The hospitalist service was subsequently consulted to assist with management of patient blood pressure. Decision was made to admit patient for observation Past Medical History Medical History: Medical History (Last Reviewed 03/03/20 @ 08:[address] Eliezer Bettencourt MD) Arthritis M19.90 Gout M10.9 Severe headache R51 HTN (hypertension) I10 Allergies bee venom protein (honey bee) Allergy (Verified 03/03/20 07:26) Hives venom-wasp Allergy (Verified 03/03/20 07:26) Hives Home Medications: Ambulatory Orders Medication Instructions Recorded Oxycodone HCl/Acetaminophen 1 tab PO Q6H PRN PRN 3 Days #12 tab 03/01/20 [Percocet 5/325] Acetaminophen [Tylenol Extra 500 mg PO Q4H PRN PRN #20 tab 03/03/20 Strength] Ibuprofen 600 mg PO Q6H PRN PRN #20 tab 03/03/20 Surgical History: Surgical History (Last Reviewed 03/03/20 @ 10:[address] 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 Gabe Holloway MD) Other CVA (cerebral vascular accident) Cancer Gout Heart disease Hypertension Review of Systems Constitutional: Denies: Anorexia, Chills, Fever HEENT: Denies: Head Aches, Sinus Congestion, Sinus Drainage Cardiovascular: Denies: Chest Pain, Orthopnea, Palpitations Respiratory: Denies: Cough, Shortness of breath at rest, Shortness of breath upon exertion, Sputum production Gastrointestinal: Denies: Abdominal Pain, Hematemesis, Hematochezia, Nausea, Melena, Vomiting Genitourinary: Denies: Frequency, Hematuria Musculoskeletal: Denies: Joint Pain, Joint Tenderness Skin: Denies: Rash Neurological: Denies: Focal weakness, Numbness, Tingling Psychiatric: Denies: Homicidal Ideations, Suicidal Ideations Hematologic/ Lymphatic: Denies: Easy Bruising, Easy Bleeding Patient Problems: Active and Suspected Problems (Last Reviewed 03/03/20 @ 08:[address] Eliezer Bettencourt MD) Accelerated hypertension (Acute) Objective: GENERAL: cooperative HEENT: Atraumatic; EYES; Anicteric, Normal Conjunctiva NECK; supple, normal thyroid, RESPIRATORY: Diminished to auscultation CARDIOVASCULAR: Regular S1 S2, GI: soft, normoactive bowel sounds, : No Renal angle tenderness; EXTREMITIES: No edema, no clubbing, MUSCULOSKELETAL: no muscle waisting NEURO: Awake; no lateralizing signs. SKIN: No Rash PSYCH; Flat affect - Physical Exam Vitals/I&O's: Vital Signs Temp Pulse Resp BP Pulse Ox 97.3 F L 78 18 181/130 H 100 03/03/20 09:30 03/03/20 09:56 03/03/20 09:56 03/03/20 09:56 03/03/20 09:56 Oxygen Flow Rate (L/min) 8 Oxygen Delivery Method Simple Mask Weight: 136.9 kg Body Mass Index (BMI) 44.5 Intake and Output for Last 24 Hours 03/01/20 03/02/20 03/03/20 23:59 23:59 23:59 Intake Total 115 / 115 Balance 115 / 115 Laboratory Results 03/03/20 09:50: Troponin I Pending Current Medications Acetaminophen (Tylenol) 650 mg PO Q4H PRN PRN PRN Reason: Pain Score 1-5/10 Lactated Ringer's () 1,000 mls @ 100 mls/hr IV .Q10H PEMA Last Admin: 03/03/20 07:53 Dose: 100 mls/hr Documented by: Metoclopramide HCl (Reglan) 10 mg IV X1 PRN PRN Reason: NAUSEA/VOMITING Ondansetron HCl (Zofran) 4 mg IV X1 PRN PRN Reason: NAUSEA Oxycodone HCl (Oxyir) 5 - 10 mg PO Q6H PRN PRN PRN Reason: Pain Score 4-10/10 Assessment/Plan All Active Problems (Last Reviewed 03/03/20 @ 08:[address] Eliezer Bettencourt MD) Right ureteral calculus (Acute) Accelerated hypertension (Acute) Closed right tibial fracture (Resolved) Sprain of unspecified ligament of right ankle, initial encounter (Resolved) Abrasion, right ankle, initial encounter (Resolved) Contusion of right hand, initial encounter (Acute) Injury of head (Resolved) The patient is a 39 year old M who underwent cystoscopy with right stent placement on account of obstructing right ureteral calculus by Dr. Bettencourt 03/03/2020. Patient was found to have markedly elevated blood pressure in the PACU. Initial treatment administered in the PACU did not result in much improvement of patient blood pressure. The hospitalist service was subsequently consulted to assist with management of patient blood pressure. Decision was made to admit patient for observation 1. Accelerated hypertension Following patient surgical procedure for kidney stones. Patient was apparently on blood pressure medication for which he quit taking 4 years ago. Blood pressure at the time of assessment was 209/139. Admitted to monitored bed patient started on scheduled amlodipine, metoprolol 50 mg p.o. twice daily as well as as needed hydralazine. If patient blood pressure does not respond to initial treatment plan will be to transfer patient to the ICU and start patient on Cardene drip 2. T wave inversions on EKG -repeat EKG is ordered do suspect myocardial ischemia from patient likely elevated blood pressure ordered 2D echo and serial cardiac enzymes 3. Nephrolithiasis -underwent cystoscopy with right stent placement on account of obstructing right ureteral calculus by Dr. Bettencourt 03/03/2020 4. Obesity with BMI of 44.6 ?Weight loss advised 5. DVT prophylaxis ?Low risk did encourage early ambulation Office Visits / Consults: [id number] IP Consult L5
[2020-03-03 10:09] LABS: Hematocrit 45.8 % (40-54); Hemoglobin 15.1 g/dL (13.0-16.5); Mean Corpuscular Hgb 27.5 pg (27.0-32.0); Mean Corpuscular Volume 83.4 fL (80-94); Mean Platelet Vol. 9.5 fl (6.2-12.0); Platelet Count 229 K/mm3 (150-450); RBC Distribution Width CV 12.7 % (11.6-14.6); RBC Distribution Width SD 38.4 fl (35.1-43.9); Red Blood Count 5.49 M/mm3 (4.6-6.2); White Blood Count 6.9 K/mm3 (4.4-11.0)
[2020-03-03] MEDS: Ketorolac 15 MG/ML Vial IV (10:15)
[2020-03-03 10:20] LABS: ALB/GLOB Ratio 0.9 RATIO (0.9-2.4); AST(SGOT) 22 U/L (15-37); Alanine Aminotransfer ALT/SGPT 35 U/L (16-61); Albumin, Serum 3.3 g/dL (3.2-5.0); Alkaline Phosphatase 62 U/L (45-117); Anion Gap 3 (5-15); BUN 16 mg/dL (7-18); BUN/Creat Ratio 10.1 RATIO (10-20); Calcium,Total 8.4 mg/dL (8.5-10.1); Chloride 105 mmol/L (98-107); Creatinine, Serum 1.59 mg/dL (0.70-1.30); EST Glomerular Filtration Rate 52 mL/min (>60); Est Glom Filt Rate - Afr Amer 63 mL/min (>60); Estimated Creatinine Clearance 62.99 ml/min; Globulin 3.6 g/dL (2.2-4.2); Glucose 115 mg/dL (74-106); Magnesium 2.4 mg/dL (1.6-2.6); Potassium 4.3 mmol/L (3.5-5.1); Protein, Total 6.9 g/dL (6.4-8.2); Sodium Level 139 mmol/L (136-145)
--- NOTE | 2020-03-03 10:34 | ECHOCS_ITS ---
Reason For Study: HTN Procedure This was a 2D Doppler, Color Flow transthoracic echocardiogram. The study was technically difficult. Due to body habitus. Contrast injection was performed. Exam performed portable in patient room. Left Ventricle Normal LV size. The estimated ejection fraction is 60 %. No evidence for diastolic dysfunction. No regional wall motion abnormalities noted. Right Ventricle Normal RV size. Normal systolic function. Atria Normal left atrium. Normal right atrium. No doppler evidence for ASD. Mitral Valve There is no mitral valve stenosis. No mitral valve insufficiency. Tricuspid Valve There is no tricuspid stenosis. Unable to estimate RV systolic pressure due to inadequate jet, pulmonary artery pressure probably normal. No tricuspid valve insufficiency. Aortic Valve Trisinus/trileaflet aortic valve. There is no aortic stenosis. No aortic valve insufficiency. Pulmonic Valve There is no pulmonic valvular stenosis. No pulmonic valve insufficiency. Great Vessels Normal aortic root. Pericardium/Pleural No pericardial effusion. Medication Diluted definity 2.0ml given slow IV push to enhance endocardial definition. MMode/2D Measurements & Calculations LVIDd: 4.5 cm IVSd: 1.4 cm Ao root diam: 3.0 cm LVIDs: 2.9 cm LVPWd: 1.4 cm RVDd: 3.1 cm FS: 34.8 % LAV(MOD-bp): 75.0 ml LA A4 area: 22.7 cm2 LA dimension(2D): 4.0 cm LAV(MOD-bp) Indexed: 30.5 ml/m2 LAV(MOD-sp2): 70.5 ml LAV(MOD-sp4): 70.8 ml RA A4 area: 21.7 cm2 Time Measurements MV jul time: 0.20 sec Doppler Measurements & Calculations MV E max heriberto: 98.2 cm/sec Lat Peak E' Heriberto: 7.2 cm/sec Med Peak E' Heriberto: 8.0 cm/sec MV A max heriberto: 55.0 cm/sec E/E' lat: 13.6 E/E' med: 12.3 MV E/A: 1.8 Ao V2 max: 131.6 cm/sec LV V1 max: 109.9 cm/sec PA V2 max: 105.4 cm/sec Ao max P.9 mmHg LV V1 max P.8 mmHg Interpretation Summary The estimated ejection fraction is 60 %. No evidence for diastolic dysfunction. The study was technically difficult. Contrast injection was performed. Ordering Physician: Gabe Holloway Referring Physician: Eliezer Bettencourt Performed By: Marychuy Wright, GUERLINECS, RVT
[2020-03-03] MEDS: Metoprolol Tartrate 25 MG Tablet 50 MG PO (10:55)
[2020-03-03] MEDS: amLODIPine 10 MG Tablet PO (10:55)
[2020-03-03 12:01] LABS: Bedside Glucose 122 mg/dL (70-110)
[2020-03-03 17:05] LABS: Bedside Glucose 94 mg/dL (70-110)
[2020-03-03] MEDS: hydrALAZINE 20 MG/ML Vial 10 MG IV (17:05)
[2020-03-03] MEDS: 0.9% Saline Lock 10 ML Syringe IV (17:06)
[2020-03-03] MEDS: oxyCODONE 5 MG Tablet PO (20:44)
[2020-03-03] MEDS: MELATONIN 3 MG TABLET PO (20:45)
[2020-03-03] MEDS: Metoprolol Tartrate 50 MG Tablet PO (20:45)
[2020-03-03 21:25] LABS: Bedside Glucose 91 mg/dL (70-110)
[2020-03-04] VITALS (12 sets, daily range): BP systolic 147–182; BP diastolic 94–121; PULSE 65–80; RESP 12–18; TEMP 36.6–36.8; O2SAT 94–95
[2020-03-04] MEDS: Lactated Ringers 1,000 ML 100 ML IV (00:45)
--- NOTE | 2020-03-04 03:20 | NURSING ---
Handoff report given, relinquished care of pt at this time.
[2020-03-04] MEDS: hydrALAZINE 20 MG/ML Vial 10 MG IV (04:01)
[2020-03-04 06:05] LABS: Absolute Neutrophil Count 3.9 X10^3/uL (2.0-7.7); Basophil# 0.07 X10^3/uL; Basophil% 1.1 % (0-1); Eosinophil# 0.33 X10^3/uL; Eosinophils% 5.3 % (0-5); Hematocrit 45.9 % (40-54); Hemoglobin 15.2 g/dL (13.0-16.5); Lymphocyte % 20.8 % (19-41); Mean Corp Hgb Conc 33.1 g/dL (32-36); Mean Corpuscular Hgb 27.8 pg (27.0-32.0); Mean Corpuscular Volume 83.9 fL (80-94); Mean Platelet Vol. 9.4 fl (6.2-12.0); Monocyte# 0.61 X10^3/uL; Monocyte% 9.7 % (0-10); NRBC Flagged by Analyzer 0 % (0-5); Neutrophil # 3.92 X10^3/uL (2.7-7.7); Neutrophil % 62.6 % (47-70); Platelet Count 226 K/mm3 (150-450); RBC Distribution Width CV 13.1 % (11.6-14.6); RBC Distribution Width SD 39.6 fl (35.1-43.9); Red Blood Count 5.47 M/mm3 (4.6-6.2); White Blood Count 6.3 K/mm3 (4.4-11.0)
[2020-03-04] MEDS: Metoprolol Tartrate 5 MG/5 ML Vial IV (06:12)
[2020-03-04] MEDS: oxyCODONE 5 MG Tablet PO ×2 (06:13→13:43)
[2020-03-04 06:40] LABS: Bedside Glucose 141 mg/dL (70-110)
[2020-03-04 06:42] LABS: Anion Gap 6 (5-15); BUN 18 mg/dL (7-18); BUN/Creat Ratio 13.7 RATIO (10-20); Calcium,Total 8.5 mg/dL (8.5-10.1); Chloride 105 mmol/L (98-107); Creatinine, Serum 1.31 mg/dL (0.70-1.30); EST Glomerular Filtration Rate 65 mL/min (>60); Est Glom Filt Rate - Afr Amer 79 mL/min (>60); Estimated Creatinine Clearance 76.46 ml/min; Glucose 118 mg/dL (74-106); Potassium 3.8 mmol/L (3.5-5.1); Sodium Level 139 mmol/L (136-145)
[2020-03-04] MEDS: Metoprolol Tartrate 50 MG Tablet PO (09:49)
[2020-03-04] MEDS: 0.9% Saline Lock 10 ML Syringe IV (09:49)
[2020-03-04] MEDS: Losartan Potassium 50 MG Tablet PO (09:49)
[2020-03-04] MEDS: Magnesium Citrate 300 ML PO (09:50)
--- NOTE | 2020-03-04 12:19 | PN_ITS ---
<Digna Marie - Last Filed: 03/04/20 12:33> Patient Problems: Active and Suspected Problems (Last Reviewed 03/03/20 @ 08:[address] Eliezer Bettencourt MD) Accelerated hypertension (Acute) Subjective: Patient seen and examined. Complains of constipation. Blood pressure remains elevated this morning. Patient states he has had issues with blood pressure in his past however lost weight and was able to get off of his medication. He states he has not been on blood pressure medications in approximately 4 years. He denies chest pressure, shortness of breath, headache. Pain currently controlled. - Physical Exam Vitals/I&O's: Vital Signs Temp Pulse Resp BP Pulse Ox 98.2 F 70 12 162/108 H 95 03/04/20 11:51 03/04/20 11:51 03/04/20 11:51 03/04/20 11:51 03/04/20 11:51 Oxygen Flow Rate (L/min) 8 Oxygen Delivery Method Room Air Weight: 301 lb 13.005 oz Body Mass Index (BMI) 44.5 Intake and Output for Last 24 Hours 03/02/20 03/03/20 03/04/20 23:59 23:59 23:59 Intake Total 1415 / 1415 2233.34 / 2233.34 Output Total 1100 / 1100 1750 / 1750 Balance 315 / 315 483.34 / 483.34 General: Alert, Oriented x3, Cooperative HEENT: Atraumatic, PERRLA, EOMI, Normocephalic Neck: Supple, No JVD, Negative Carotid Bruits Lungs: Clear to auscultation, Normal air movement Cardiovascular: Regular rate, No murmurs Abdomen: Bowel Sounds Present, Soft, Non Tender, Non-Distended, Obese Extremities: No clubbing, No cyanosis, No edema, Capillary Refill Less than 3 Seconds Skin: No rashes, No breakdown Musculoskeletal: No Tenderness to Palpation of Joints or Extremities Neurological: Cranial nerves II-XII grossly intact, Neuro grossly intact Psych/Mental Status: Normal Affect, Appropriate Laboratory Results 03/03/20 12:35: Troponin I 0.026 03/03/20 15:54: Troponin I < 0.015 03/03/20 16:52: POC Glucose 94 03/03/20 20:50: POC Glucose 91 03/04/20 05:34: WBC 6.3, RBC 5.47, Hgb 15.2, Hct 45.9, MCV 83.9, MCH 27.8, MCHC 33.1, RDW Std Deviation 39.6, RDW Coeff of Mariann 13.1, Plt Count 226, MPV 9.4, Immature Gran % (Auto) 0.500, Neut % (Auto) 62.6, Lymph % (Auto) 20.8, [place] % (Auto) 9.7, Eos % (Auto) 5.3 H, Baso % (Auto) 1.1 H, Absolute Neuts (auto) 3.9, Absolute Lymphs (auto) 1.30, Nucleated RBC % 0 03/04/20 05:34: Sodium 139, Potassium 3.8, Chloride 105, Carbon Dioxide 28.0, Anion Gap 6, BUN 18, Creatinine 1.31 H, Estim Creat Clear Calc 76.46, Est GFR (MDRD) Af Amer 79, Est GFR (MDRD) Non-Af 65, BUN/Creatinine Ratio 13.7, Glucose 118 H, Calcium 8.5 03/04/20 06:32: POC Glucose 141 H Current Medications Acetaminophen (Tylenol) 650 mg PO Q4H PRN PRN PRN Reason: Pain Score 1-5/10 Al Hydroxide/Mg Hydroxide (Mylanta Ii) 30 ml PO Q6H PRN PRN PRN Reason: Gastric Burning Albuterol Sulfate (Ventolin Aerosols) 2.5 mg INHALATION Q2H PRN PRN PRN Reason: SOB/Wheezing Hydralazine HCl (Apresoline Iv) 10 mg IV Q4H PRN PRN PRN Reason: Hypertensive Emergency Last Admin: 03/04/20 04:01 Dose: 10 mg Documented by: Sodium Chloride () 250 mls @ 15 mls/hr IV .[id number] PRN PRN Reason: Saline Flush Losartan Potassium (Cozaar) 50 mg PO BID PEMA Last Admin: 03/04/20 09:49 Dose: 50 mg Documented by: Melatonin (Melatonin) 3 mg PO QHS PRN PRN PRN Reason: INSOMNIA Last Admin: 03/03/20 20:45 Dose: 3 mg Documented by: Metoclopramide HCl (Reglan) 10 mg IV X1 PRN PRN Reason: NAUSEA/VOMITING Metoprolol Tartrate (Lopressor (Beta Evy)) 50 mg PO BID PEMA Last Admin: 03/04/20 09:49 Dose: 50 mg Documented by: Nitroglycerin (Nitrostat) 0.4 mg SUBLINGUAL Q5M PRN PRN Reason: CARDIAC/CHEST PAIN Ondansetron HCl (Zofran) 4 mg IV X1 PRN PRN Reason: NAUSEA Oxycodone HCl (Oxyir) 5 - 10 mg PO Q6H PRN PRN PRN Reason: Pain Score 4-10/10 Last Admin: 03/04/20 06:13 Dose: 10 mg Documented by: Senna/Docusate Sodium (Senokot-S, Juliette-Colace) 2 tablet PO BID PRN PRN PRN Reason: Constipation Sodium Chloride () 10 - 40 ml IV UD PRN PRN Reason: SALINE FLUSH Last Admin: 03/04/20 09:49 Dose: 10 ml Documented by: Medical Necessity - Tobacco Use Smoking Status: Never smoker Tobacco Use: Non-smoker Assessment/Plan All Active Problems (Last Reviewed 03/03/20 @ 08:[address] Eliezer Bettencourt MD) Right ureteral calculus (Acute) Accelerated hypertension (Acute) Closed right tibial fracture (Resolved) Sprain of unspecified ligament of right ankle, initial encounter (Resolved) Abrasion, right ankle, initial encounter (Resolved) Contusion of right hand, initial encounter (Acute) Injury of head (Resolved) 1. Accelerated hypertension-troponin negative. Echocardiogram demonstrates an EF of 60%. No evidence of diastolic dysfunction. Initiated on losartan 50 mg twice daily as well as metoprolol 50 mg twice daily. Blood pressure improved however continues to remain above goal. Will initiate on amlodipine 10 mg daily. If blood pressure is less than 150 systolically later today, plan for discharge home with further outpatient blood pressure monitoring. Discussed with patient obtaining blood pressure cuff for at home monitoring. 2. Nephrolithiasis-status post cystoscopy with right stent placement 03/03/[address] Bettencourt. Will need lithotripsy which will be done at a later date following improvement in blood pressure. 3. Obesity- encouraged diet and lifestyle modifications. 4. Suspected YSABEL-patient's reports periods of apnea, snoring. Recommend outpatient PSG. DVT prophylaxis- not indicated, low risk This patient was seen by PALLAVI Trotter under the supervision of Dr. Holloway. <Gabe Holloway - Last Filed: 03/04/20 14:42> - Physical Exam Vitals/I&O's: Vital Signs Temp Pulse Resp BP Pulse Ox 98.0 F 71 16 147/94 H 94 03/04/20 14:33 03/04/20 14:33 03/04/20 14:33 03/04/20 14:33 03/04/20 14:33 Oxygen Flow Rate (L/min) 8 Oxygen Delivery Method Room Air Weight: 136.9 kg Body Mass Index (BMI) 44.5 Intake and Output for Last 24 Hours 03/02/20 03/03/20 03/04/20 23:59 23:59 23:59 Intake Total 1415 / 1415 2233.34 / 2233.34 Output Total 1100 / 1100 1750 / 1750 Balance 315 / 315 483.34 / 483.34 Laboratory Results 03/03/20 15:54: Troponin I < 0.015 03/03/20 16:52: POC Glucose 94 03/03/20 20:50: POC Glucose 91 03/04/20 05:34: WBC 6.3, RBC 5.47, Hgb 15.2, Hct 45.9, MCV 83.9, MCH 27.8, MCHC 33.1, RDW Std Deviation 39.6, RDW Coeff of Mariann 13.1, Plt Count 226, MPV 9.4, Immature Gran % (Auto) 0.500, Neut % (Auto) 62.6, Lymph % (Auto) 20.8, [place] % (Auto) 9.7, Eos % (Auto) 5.3 H, Baso % (Auto) 1.1 H, Absolute Neuts (auto) 3.9, Absolute Lymphs (auto) 1.30, Nucleated RBC % 0 03/04/20 05:34: Sodium 139, Potassium 3.8, Chloride 105, Carbon Dioxide 28.0, Anion Gap 6, BUN 18, Creatinine 1.31 H, Estim Creat Clear Calc 76.46, Est GFR (MDRD) Af Amer 79, Est GFR (MDRD) Non-Af 65, BUN/Creatinine Ratio 13.7, Glucose 118 H, Calcium 8.5 03/04/20 05:34: Hemoglobin A1c 5.7 H 03/04/20 06:32: POC Glucose 141 H Current Medications Acetaminophen (Tylenol) 650 mg PO Q4H PRN PRN PRN Reason: Pain Score 1-5/10 Al Hydroxide/Mg Hydroxide (Mylanta Ii) 30 ml PO Q6H PRN PRN PRN Reason: Gastric Burning Albuterol Sulfate (Ventolin Aerosols) 2.5 mg INHALATION Q2H PRN PRN PRN Reason: SOB/Wheezing Hydralazine HCl (Apresoline Iv) 10 mg IV Q4H PRN PRN PRN Reason: Hypertensive Emergency Last Admin: 03/04/20 04:01 Dose: 10 mg Documented by: Sodium Chloride () 250 mls @ 15 mls/hr IV .[id number] PRN PRN Reason: Saline Flush Losartan Potassium (Cozaar) 50 mg PO BID [facility] Last Admin: 03/04/20 09:49 Dose: 50 mg Documented by: Melatonin (Melatonin) 3 mg PO QHS PRN PRN PRN Reason: INSOMNIA Last Admin: 03/03/20 20:45 Dose: 3 mg Documented by: Metoclopramide HCl (Reglan) 10 mg IV X1 PRN PRN Reason: NAUSEA/VOMITING Metoprolol Tartrate (Lopressor (Beta Evy)) 50 mg PO BID [facility] Last Admin: 03/04/20 09:49 Dose: 50 mg Documented by: Nitroglycerin (Nitrostat) 0.4 mg SUBLINGUAL Q5M PRN PRN Reason: CARDIAC/CHEST PAIN Ondansetron HCl (Zofran) 4 mg IV X1 PRN PRN Reason: NAUSEA Oxycodone HCl (Oxyir) 5 - 10 mg PO Q6H PRN PRN PRN Reason: Pain Score 4-10/10 Last Admin: 03/04/20 13:43 Dose: 10 mg Documented by: Senna/Docusate Sodium (Senokot-S, Juliette-Colace) 2 tablet PO BID PRN PRN PRN Reason: Constipation Sodium Chloride () 10 - 40 ml IV UD PRN PRN Reason: SALINE FLUSH Last Admin: 03/04/20 09:49 Dose: 10 ml Documented by: Assessment/Plan This patient was seen in conjunction with PALLAVI Trotter . I have independently interviewed and examined the patient and reviewed pertinent historical, laboratory, and other data. Please refer to Digna Frank, CLINICAL DENTAL TECHNICIAN-C note for details of this patient's presentation, findings, and recommendations. I have reviewed NAOMI TrotterC note and concur with documented findings. In brief, patient is a 81-year-old gentleman admitted following cystoscopy with right stent placement for kidney stone. Patient was found to have markedly elevated blood pressure admitted to a monitored bed for further management. Patient blood pressure still remains elevated Physical Examination: GENERAL: cooperative HEENT: Atraumatic; EYES; Anicteric, Normal Conjunctiva NECK; supple, normal thyroid, RESPIRATORY: Diminished to auscultation CARDIOVASCULAR: Regular S1 S2, GI: soft, normoactive bowel sounds, : No Renal angle tenderness; EXTREMITIES: No edema, no clubbing, MUSCULOSKELETAL: no muscle waisting NEURO: Awake; no lateralizing signs. SKIN: No Rash PSYCH; Flat affect Assessment: 1. Accelerated hypertension 2. Nephrolithiasis 3. Obesity BMI 44.6 4. Impaired kidney function 5. Suspected obstructive sleep apnea 6. DVT prophylaxis Recommendations: 1. I have discussed the results of my overview and impressions with the patient 2. Options for management were reviewed Inpatient E&M: [id number] [facility] L3
[2020-03-04] MEDS: amLODIPine 10 MG Tablet PO (12:29)
[2020-03-04 14:04] LABS: Hemoglobin A1c 5.7 % (3.8-5.6)
--- NOTE | 2020-03-04 14:08 | CASEMGMT ---
SW spoke with patient and his significant other as patient does not have insurance. His medications cost $53.91. SW spoke with them regarding cost and they cannot afford this at this time. SIDRA explained [facility] has a program where we can assist one time a year. They thanked SIDRA for the assistance. SIDRA completed form and sent it to retail pharmacy. SIDRA also called and notified Zayda in retail pharmacy. RN was also notified. Linn COHEN
--- NOTE | 2020-03-04 14:45 | DCINST_ITS ---
- Discharge Diagnoses Current Active Problems: Current Active and Chronic Problems (Last Reviewed 03/03/20 @ 08:[address] Eliezer Bettencourt MD) Accelerated hypertension (Acute) You will use the following diet at home:: Cardiac Discharge Activity: Return to Normal Activity, May Not Drive - for 2 days., May not drive while taking narcotic pain medications. Additional Activity Instructions:: Please be aware that pain medications may cause nausea. You should typically eat light foods as you take your pain medication. Pain medication may cause constipation, if this is a problem for you, please discuss with your doctor. Call your doctor if you observe: Fever of 101 or Higher, Uncontrolled pain Allergies/Adverse Reactions: Allergies bee venom protein (honey bee) Allergy (Verified 03/03/20 07:26) Hives venom-wasp Allergy (Verified 03/03/20 07:26) Hives Medications to take at Discharge Oxycodone HCl/Acetaminophen [Percocet 5-325] 1 tab PO Q6H PRN PRN 3 Days #12 tab 03/01/20 Acetaminophen [Tylenol Extra Strength] 500 mg PO Q4H PRN PRN #20 tab 03/03/20 Ibuprofen 600 mg PO Q6H PRN PRN #20 tab 03/03/20 Amlodipine [Norvasc] 10 mg PO DAILY #30 tab 03/04/20 Losartan Potassium [Cozaar] 50 mg PO BID #60 tab 03/04/20 Metoprolol Tartrate [Lopressor (beta jethro)] 50 mg PO BID #60 tab 03/04/20 The following prescriptions were given: Losartan Potassium [Cozaar] 50 mg PO BID #60 tab Transmission Status: Received by [facility] Ibuprofen 600 mg PO Q6H PRN PRN #20 tab PRN Reason: Pain Score 1-10/10 Transmission Status: Received by [facility] Metoprolol Tartrate [Lopressor (beta jethro)] 50 mg PO BID #60 tab Transmission Status: Received by [facility] Amlodipine [Norvasc] 10 mg PO DAILY #30 tab Transmission Status: Received by [facility] Acetaminophen [Tylenol Extra Strength] 500 mg PO Q4H PRN PRN #20 tab PRN Reason: Pain Score 1-10/10 Transmission Status: Received by [facility] Test Results: Test results from this visit will be discussed in further detail at your follow- up appointment, if applicable. Please Follow Up With: Eliezer Bettencourt MD When: please call to make an appointment- next week to remove stent or check up Please Follow Up With: Naldo Mckoy MD - PCP When: Call to establish Proposed Discharge Date: 03/04/20
--- NOTE | 2020-03-04 16:44 | DS.PCM_ITS ---
<Digna Marie - Last Filed: 03/04/20 16:50> Discharge Date and Diagnosis Date of Admission: 03/03/20 Date of Discharge: 03/04/20 - Primary Discharge Diagnosis Acute Problems: 1. Accelerated hypertension 2. Nephrolithiasis-status post cystoscopy with right stent placement 03/03/[address] Bettencourt. 3. Obesity 4. Suspected YSABEL 5. Presumed FLORES Hospital Course and Treatment Dr. Bettencourt- urology Procedures: - - Cystoscopy with right stent placement Summary of Care Provided: The patient is a 39 year old M admitted 03/03/2020 due to obstructing right ureteral calculus and elevated blood pressure. 1. Accelerated hypertension-troponin negative. Echocardiogram demonstrates an EF of 60%. No evidence of diastolic dysfunction. Initiated on losartan 50 mg twice daily as well as metoprolol 50 mg twice daily. Due to continued high blood pressure, also initiated on amlodipine 10 mg daily. Discussed with patient obtaining blood pressure cuff for at home monitoring. Blood pressure at discharge 147/94. Follow-up with primary care physician at discharge for further adjustments as necessary. 2. Nephrolithiasis-status post cystoscopy with right stent placement 03/03/[address] Bettencourt. Will need lithotripsy which will be done at a later date following improvement in blood pressure. Office to call patient for follow-up. 3. Obesity- encouraged diet and lifestyle modifications. 4. Suspected YSABEL-patient's reports periods of apnea, snoring. Recommend outpatient PSG. 5. Presumed FLORES-secondary to #2. No prior labs for comparison. Creatinine improved from 1.7-1.3. Recommend repeat outpatient BMP. General: Alert, Oriented x3, Cooperative HEENT: Atraumatic, PERRLA, EOMI, Normocephalic Neck: Supple, No JVD, Negative Carotid Bruits Lungs: Clear to auscultation, Normal air movement Cardiovascular: Regular rate, No murmurs Abdomen: Bowel Sounds Present, Soft, Non Tender, Non-Distended, Obese Extremities: No clubbing, No cyanosis, No edema, Capillary Refill Less than 3 Seconds Skin: No rashes, No breakdown Musculoskeletal: No Tenderness to Palpation of Joints or Extremities Neurological: Cranial nerves II-XII grossly intact, Neuro grossly intact Psych/Mental Status: Normal Affect, Appropriate Patient seen and examined prior to discharge. Physical assessment as noted above. Patient is stable for discharge with follow up recommendations as noted above. This patient was seen by PALLAVI Trotter under the supervision of Dr. Holloway. - Physical Exam Vitals/I&O's: Vital Signs Temp Pulse Resp BP Pulse Ox 98.0 F 71 16 147/94 H 94 03/04/20 14:45 03/04/20 14:45 03/04/20 14:45 03/04/20 14:45 03/04/20 14:45 Oxygen Flow Rate (L/min) 8 Oxygen Delivery Method Room Air Weight: 301 lb 13.005 oz Body Mass Index (BMI) 44.5 Intake and Output for Last 24 Hours 03/02/20 03/03/20 03/04/20 23:59 23:59 23:59 Intake Total 1415 / 1415 2233.34 / 2233.34 Output Total 1100 / 1100 1750 / 1750 Balance 315 / 315 483.34 / 483.34 Laboratory Results 03/03/20 16:52: POC Glucose 94 03/03/20 20:50: POC Glucose 91 03/04/20 05:34: WBC 6.3, RBC 5.47, Hgb 15.2, Hct 45.9, MCV 83.9, MCH 27.8, MCHC 33.1, RDW Std Deviation 39.6, RDW Coeff of Mariann 13.1, Plt Count 226, MPV 9.4, Immature Gran % (Auto) 0.500, Neut % (Auto) 62.6, Lymph % (Auto) 20.8, Stone % (Auto) 9.7, Eos % (Auto) 5.3 H, Baso % (Auto) 1.1 H, Absolute Neuts (auto) 3.9, Absolute Lymphs (auto) 1.30, Nucleated RBC % 0 03/04/20 05:34: Sodium 139, Potassium 3.8, Chloride 105, Carbon Dioxide 28.0, Anion Gap 6, BUN 18, Creatinine 1.31 H, Estim Creat Clear Calc 76.46, Est GFR (MDRD) Af Amer 79, Est GFR (MDRD) Non-Af 65, BUN/Creatinine Ratio 13.7, Glucose 118 H, Calcium 8.5 03/04/20 05:34: Hemoglobin A1c 5.7 H 03/04/20 06:32: POC Glucose 141 H Discharge Diet: No Restrictions, Light diet - advance as tolerated Discharge Activity: Return to Normal Activity, May Not Drive - for 2 days., May not drive while taking narcotic pain medications. Additional Activity Instructions:: Please be aware that pain medications may cause nausea. You should typically eat light foods as you take your pain medic ation. Pain medication may cause constipation, if this is a problem for you, please discuss with your doctor. Call your doctor if you observe: Fever of 101 or Higher, Uncontrolled pain Home Medications: Medications to take at Discharge Acetaminophen [Tylenol Extra Strength] 500 mg PO Q4H PRN PRN #20 tab 03/03/20 Ibuprofen 600 mg PO Q6H PRN PRN #20 tab 03/03/20 Amlodipine [Norvasc] 10 mg PO DAILY #30 tab 03/04/20 Losartan Potassium [Cozaar] 50 mg PO BID #60 tab 03/04/20 Metoprolol Tartrate [Lopressor (beta jethro)] 50 mg PO BID #60 tab 03/04/20 Following Prescrptions Were Given to Patient: Losartan Potassium [Cozaar] 50 mg PO BID #60 tab Transmission Status: Received by [facility] Ibuprofen 600 mg PO Q6H PRN PRN #20 tab PRN Reason: Pain Score 1-10/10 Transmission Status: Received by [facility] Metoprolol Tartrate [Lopressor (beta jethro)] 50 mg PO BID #60 tab Transmission Status: Received by [facility] Amlodipine [Norvasc] 10 mg PO DAILY #30 tab Transmission Status: Received by [facility] Acetaminophen [Tylenol Extra Strength] 500 mg PO Q4H PRN PRN #20 tab PRN Reason: Pain Score 1-10/10 Transmission Status: Received by [facility] Primary Care Physician: Care Physician,No Primary [Primary Care Provider] - Please Follow Up With: Eliezer Bettencourt MD When: please call to make an appointment- next week to remove stent or check up Please Follow Up With: Naldo Mckoy MD When: Call to establish Disposition: Home Minutes spent on discharge:: 35 Patient Condition:: Stable Medical Necessity - Tobacco Use Smoking Status: Never smoker Tobacco Use: Non-smoker Meaningful Use Info Meaningful Use Diagnoses (Choose all that apply): None applicable <Gabe Holloway - Last Filed: 03/05/20 07:28> Hospital Course and Treatment Summary of Care Provided: This patient was seen in conjunction with PALLAVI Trotter . I have independently interviewed and examined the patient and reviewed pertinent historical, laboratory, and other data. Please refer to PALLAVI Trotter note for details of this patient's presentation, findings, and recommendations. I have reviewed PALLAVI Trotter note and concur with documented findings. In brief, patient is a 39-year-old gentleman admitted following cystoscopy with right stent placement with significantly elevated blood pressure. Admitted to a monitored bed for blood pressure control Hospital course: As documented above - Physical Exam Vitals/I&O's: Vital Signs Temp Pulse Resp BP Pulse Ox 98.0 F 71 16 147/94 H 94 03/04/20 14:45 03/04/20 14:45 03/04/20 14:45 03/04/20 14:45 03/04/20 14:45 Oxygen Flow Rate (L/min) 8 Oxygen Delivery Method Room Air Weight: 136.9 kg Body Mass Index (BMI) 44.5 Intake and Output for Last 24 Hours 03/03/20 03/04/20 03/05/20 23:59 23:59 23:59 Intake Total 1415 / 1415 2233.34 / 2233.34 Output Total 1100 / 1100 1750 / 1750 Balance 315 / 315 483.34 / 483.34 Laboratory Results 03/04/20 05:34: Hemoglobin A1c 5.7 H Inpatient E&M: 70107 Disch Hosp
== END 2020-03-04 14:45 | disposition home or self-care (01) ==
LOC: SDC 10:26 → PCU 10:26
PROVIDERS: Internal Medicine; Nurse Practitioner Family; Obstetrics & Gynecology; Admitting Provider Urology; Referring Provider Urology; Visit Provider Urology
PROC: (CPT 52356; principal; 2020-03-03 08:40)
DX: N20.2 Calculus of kidney with calculus of ureter (principal); I10 Essential (primary) hypertension; Z86.718 Personal history of other venous thrombosis and embolism; K21.9 Gastro-esophageal reflux disease without esophagitis; M19.90 Unspecified osteoarthritis, unspecified site; R94.31 Abnormal electrocardiogram [ECG] [EKG]; Z68.41 Body mass index [BMI] 40.0-44.9, adult; E66.9 Obesity, unspecified; K59.00 Constipation, unspecified
CPT/HCPCS: 00910; 52332; 36415; 76000; 80048; 80053; 82962; 83036; 83735; 84484; 85025; 85027; 93005; 93306; 96361; 96374; 96375; 96376; 99218; J7120; Q9957; A4216; C1726; C1769; C2617; C8929; G0378; G0379; J2405

== ENCOUNTER 2020-03-10 12:57 | Day surgery (SDC) | payer BC, SELFPAY ==
[2020-03-03 10:37] VITALS: BMI 44.5
[2020-03-10] VITALS (7 sets, daily range): BP systolic 151–171; BP diastolic 99–113; PULSE 67–77; RESP 16–18; TEMP 36.2–36.8; O2SAT 89–100; BMI 43.1
--- NOTE | 2020-03-10 13:03 | EKG12_ITS ---
Test Reason : PRE-OP Blood Pressure : / mmHG Vent. Rate : 067 BPM Atrial Rate : 067 BPM P-R Int : 150 ms QRS Dur : 090 ms QT Int : 390 ms P-R-T Axes : 015 035 159 degrees QTc Int : 412 ms Normal sinus rhythm T wave abnormality, consider lateral ischemia Abnormal ECG When compared with ECG of 03-MAR-2020 09:49, No significant change was found Confirmed by LEIGH CONLEY ([id number]), visual effects editor LAURA WEBER ([id number]) on 03/15/2020 12:43:35 PM Referred By: Eliezer Bettencourt Confirmed By:LEIGH CONLEY
--- NOTE | 2020-03-10 13:30 | PCM.HP.STD ---
Problem List (1) Right ureteral calculus Status: Acute History of Present Illness Date of Admission: 03/10/20 Chief Complaint: Right obstructing ureteral calculi, high blood pressure The patient is a 39 year old male who last week presented for treatment of a kidney stone however blood pressure was too high so we just placed a stent he has been seen and cleared by medical service to proceed his blood pressure is down but still not normal but we can proceed because he has an obstructing stone the stent is in place. Past Medical History Medical History: Medical History (Last Reviewed 03/10/20 @ 13:[address] Eliezer Bettencourt MD) Arthritis M19.90 Gout M10.9 Severe headache R51 HTN (hypertension) I10 Allergies bee venom protein (honey bee) Allergy (Verified 03/10/20 13:16) Hives venom-wasp Allergy (Verified 03/10/20 13:16) Hives Home Medications: Ambulatory Orders Medication Instructions Recorded Acetaminophen [Tylenol Extra 500 mg PO Q4H PRN PRN #20 tab 03/03/20 Strength] Ibuprofen 600 mg PO Q6H PRN PRN #20 tab 03/03/20 Losartan Potassium [Cozaar] 50 mg PO BID #60 tab 03/04/20 Metoprolol Tartrate [Lopressor 50 mg PO BID #60 tab 03/04/20 (beta jethro)] Amlodipine [Norvasc] 10 mg PO QHS 03/09/20 Surgical History: Surgical History (Last Reviewed 03/03/20 @ 10:[address] 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 Surgical History: - - Orthopedic surgery Smoking Status: Never smoker Review of Systems Constitutional: Denies: Chills, Fever, Weight Change HEENT: Denies: Head Aches, Sinus Congestion, Sinus Drainage Cardiovascular: Denies: Chest Pain, Palpitations Respiratory: Denies: Cough, Shortness of breath at rest, Sputum production Gastrointestinal: Denies: Abdominal Pain, Nausea, Vomiting Genitourinary: Denies: Dysuria Musculoskeletal: Denies: Joint Pain, Joint Tenderness Skin: Denies: Rash, Wounds Neurological: Denies: Numbness, Tingling, Focal weakness Psychiatric: Denies: Anxiety, Depression, Homicidal Ideations, Suicidal Ideations Hematologic/ Lymphatic: Denies: Easy Bruising, Easy Bleeding VTE Information - Inpt Only VTE Present on Admission: No VTE Mechan Device Prophylaxis: SCD's - Physical Exam Vitals/I&O's: Body Mass Index (BMI) 44.5 General: Alert, Oriented x3, Cooperative HEENT: Atraumatic, PERRLA, EOMI, Normocephalic Neck: Supple, No JVD, Negative Carotid Bruits Lungs: Clear to auscultation, Normal air movement Cardiovascular: Regular rate, No murmurs Abdomen: Bowel Sounds Present, Soft, Non Tender Extremities: No edema, Capillary Refill Less than 3 Seconds Skin: No rashes, No breakdown Musculoskeletal: No Tenderness to Palpation of Joints or Extremities Neurological: Cranial nerves II-XII grossly intact Psych/Mental Status: Normal Affect, Appropriate Assessment/Plan All Active Problems (Last Reviewed 03/03/20 @ 08:[address] Eliezer Bettencourt MD) Right ureteral calculus (Acute) Accelerated hypertension (Acute) Closed right tibial fracture (Resolved) Sprain of unspecified ligament of right ankle, initial encounter (Resolved) Abrasion, right ankle, initial encounter (Resolved) Contusion of right hand, initial encounter (Acute) Injury of head (Resolved) 39-year-old male with high blood pressure, negative work-up on admission but blood pressure was controlled still little high this morning but can proceed with right ureteroscopy laser stone and stent
--- NOTE | 2020-03-10 13:34 | PCM.DC.URO ---
Discharge Diet: No Restrictions, Light diet - advance as tolerated Discharge Activity: Return to Normal Activity, May Not Drive - for 2 days. Additional Activity Instructions:: Please be aware that pain medications may cause nausea. You should typically eat light foods as you take your pain medication. Pain medication may cause constipation, if this is a problem for you, please discuss with your doctor. Allergies/Adverse Reactions: Allergies bee venom protein (honey bee) Allergy (Verified 03/10/20 13:16) Hives venom-wasp Allergy (Verified 03/10/20 13:16) Hives Medications to take at Discharge Acetaminophen [Tylenol Extra Strength] 500 mg PO Q4H PRN PRN #20 tab 03/03/20 Ibuprofen 600 mg PO Q6H PRN PRN #20 tab 03/03/20 Losartan Potassium [Cozaar] 50 mg PO BID #60 tab 03/04/20 Metoprolol Tartrate [Lopressor (beta jethro)] 50 mg PO BID #60 tab 03/04/20 Amlodipine [Norvasc] 10 mg PO QHS 03/09/20 Cephalexin [Keflex] 500 mg PO Q8 #10 cap 03/10/20 The following prescriptions were given: Cephalexin [Keflex] 500 mg PO Q8 #10 cap Transmission Status: Pending to [facility] Primary Care Physician: Care Physician,No Primary [Primary Care Provider] - Test Results: Test results from this visit will be discussed in further detail at your follow-up appointment, if applicable. Please Follow Up With: Eliezer Bettencourt MD When: Follow up in 1 week.
[2020-03-10] MEDS: Lactated Ringers 1,000 ML 100 ML IV (13:36)
[2020-03-10] MEDS: Cefazolin 2 GM in 0.9% Normal Saline 100 ML IV (13:55)
--- NOTE | 2020-03-10 14:55 | PCM.OPRPT ---
Problem List (1) Right ureteral calculus Status: Acute Report of Operation Date of Procedure: 03/10/20 Pre-Operative Diagnosis: Right ureteral calculi large and ureteral stricture Post-Operative Diagnosis: Same Surgery/Procedure Performed:: Cystoscopy, balloon dilation of ureteral stricture, right ureteroscopy laser stone and basket of fragments and right stent placement Description of Surgical Findings:: 39-year-old male taken back to the operating room after smooth induction of general anesthesia he was placed in dorsolithotomy position, the penis and testicles were prepped and draped in usual fashion, went into the bladder with a 21 Latvian rigid cystourethroscope grabbed existing stent pulled out the meatus and then put a wire up to the stent left the wire in place the next to the wire went in with a flexible ureteroscope encountered the stone performed laser lithotripsy and then the angle became more difficult so that picked up took out the flexible ureteroscope and switched to a semirigid ureteroscope laser the stones a little tiny pieces he did have a stricture kind of proximal to the stone so because of this I put a balloon dilator up and dilated the stricture with a 15 Latvian balloon dilator once this was dilated and is easier to get to the stones and then I removed the remaining fragments of basket and then after basketing remaining fragments and I placed a stent a 6 Latvian by 26 cm stent up the right ureter stent was in good position we will leave the stent in for 2 weeks and make sure the ureter heals there is a lot of inflammation in the stricture as a result of the stone. I will see him in 2 weeks for cystoscopy stent removal Type of Anesthesia:: General Drains: stent - Admit VTE Documentation VTE Present on Admission: No VTE Mechan Device Prophylaxis: SCD's
[2020-03-10] MEDS: Ketorolac 30 MG/ML Syringe IV ×2 (16:11→16:17)
== END 2020-03-10 16:34 | disposition home or self-care (01) ==
LOC: SDC 12:57 → AC 12:58
PROVIDERS: Referring Provider Urology; Visit Provider Urology
PROC: 0TJ98ZZ Inspection of Ureter, Via Natural or Artificial Opening Endoscopic (ICD-10-PCS; CPT 52352; principal; 2020-03-10 15:40)
DX: N20.1 Calculus of ureter (principal); N13.5 Crossing vessel and stricture of ureter without hydronephrosis; I10 Essential (primary) hypertension; M19.90 Unspecified osteoarthritis, unspecified site; K21.9 Gastro-esophageal reflux disease without esophagitis; Z79.899 Other long term (current) drug therapy; Z86.718 Personal history of other venous thrombosis and embolism
CPT/HCPCS: 52352; 52356; 76000; 82360; 93005; J7120; C1726; C2617; J2405

== ENCOUNTER → 2020-07-09 14:05 | Outpatient (CLI) | payer OTHER, SELFPAY ==
[2020-03-10 13:27] VITALS: BMI 43.1
--- NOTE | 2020-07-09 14:09 | VDLE_ITS ---
Reason For Study: DVT RIGHT GSV is normal. CFV is compressible, spontaneous, phasic, competent and demonstrates normal augmentation. FV is compressible, spontaneous, phasic, competent and demonstrates normal augmentation. POP V is compressible, spontaneous, phasic, competent and demonstrates normal augmentation. T/P Trunk is compressible. PTV is compressible. RT PerV is compressible. Procedure This is a venous duplex using B-mode, color flow and spectral Doppler. Exam performed in department. A preliminary report was called and/or faxed to [facility]. Interpretation Summary Deep veins of the right lower extremity are patent and compressible segmentally. There is no evidence of right lower extremity deep vein thrombosis. Valvular competence appears intact within the proximal deep venous system on the right . The right great saphenous vein appears patent and compressible segmentally. Ordering Physician: Abilio Cheema Performed By: Sarah Martinez RVT and Student
== END ==
PROVIDERS: Referring Provider Podiatrist; Visit Provider Podiatrist
DX: I82.401 Acute embolism and thrombosis of unspecified deep veins of right lower extremity (principal); M79.604 Pain in right leg; M79.89 Other specified soft tissue disorders
CPT/HCPCS: 93971

== ENCOUNTER 2020-08-21 12:59 | Observation (INO) | payer BC, SELFPAY ==
[2020-03-10 13:27] VITALS: BMI 43.1
--- NOTE | 2020-08-19 | APP_PTH ---
PATIENT: KELTON FLOYD LOC: MS3 U#:[id number] AGE/SX: 39/M ROOM: [facility]305 RE08/21/[address]: Dr. Cresencio Combs MD : [id number] BED: 1 DIS: 08/22/2020 SPEC #: [id number] RECD: 08/23/20 07:59 STATUS: RAYO REXenia #: [id number] BRITTANY: 08/19/20 00:[address]: Cresencio Combs DEPT: SURGICAL PATHOLOGY RECD BY: Sal Ray ENTERED: 08/23/20 08:00 SP TYPE: APPENDIX OTHR DR: No Primary Care Phys Tissues: Appendix, NOS Procedures: Surgery Specimen Level III HEADER OPERATION: Laparoscopic appendectomy PRE-OP DIAGNOSIS: Acute appendicitis TISSUE SUBMITTED: Appendix MICROSCOPIC DIAGNOSIS Appendix, appendectomy: Acute appendicitis and periappendicitis. MADI:lance 08/24/2020 MICROSCOPIC DESCRIPTION Slides are reviewed. GROSS DESCRIPTION Received in fixative is one container labeled with the patient's name and designated appendix. The specimen consists of an appendix measuring 5.5 cm in length and up to 1 cm in diameter. No gross perforations are evident. Serial sections reveal a patent lumen with fecal material. No mass lesion is identified. Blood Bank Technologist sections are submitted in one cassette. / AM:lance 08/23/2020 TC:2 CPT: 09200
[2020-08-21] VITALS (12 sets, daily range): BP systolic 114–160; BP diastolic 58–112; PULSE 70–90; RESP 16–20; TEMP 36.1–37; O2SAT 90–98; BMI 42.8; BMI 45.6; BMI 45.8
--- NOTE | 2020-08-21 13:15 | CT_ITS ---
STUDY: CT ABDOMEN AND PELVIS WITHOUT CONTRAST REASON FOR EXAM: Male, 39 years old. RT FLANK PAIN,DECREASED BM''S, HX-KS, GERD, HTN RADIATION DOSAGE (If Supplied By Facility): CTDIvol = ( 24.15 ) mGy, DLP = ( 1357.83 ) mGycm TECHNIQUE: Transaxial images were obtained from the dome of the diaphragm to the symphysis pubis without oral contrast, and without intravenous contrast. Sagittal and coronal images were reconstructed. Individualized dose optimization techniques were used for this CT. COMPARISON: 03/01/2020 FINDINGS: The visualized lung bases are unremarkable. The visualized portions of the heart are within normal limits. There is decreased attenuation of the liver consistent with steatosis. Normal gallbladder and extrahepatic biliary system. Normal spleen. Normal pancreas. Normal bilateral adrenal glands. Nonobstructing right renal calculus measures 6 mm. 2 mm calculus of the left kidney as seen on image 89. No hydronephrosis. No ureteral calculi. Normal visualized stomach. Normal small intestine. Normal colon. There is a tubular, thick-walled appendix (9mm), consistent with acute appendicitis. Normal abdominal aorta. Normal inferior vena cava. Normal retroperitoneum. Normal urinary bladder. Normal abdominal wall. Normal osseous structures. CT/Abdomen/Pelvis without Cont IMPRESSION: 1. Appendicitis. No focal fluid collection or pneumoperitoneum. 2. Nonobstructing bilateral renal calculi. No hydronephrosis or ureteral calculi. Electronically Signed: Wolf Caraballo MD (Brooks) at 14:13 EST , Service support ,
--- NOTE | 2020-08-21 13:20 | ED.DCSUM_ITS ---
- ER Visit Summary Date of Service: 08/21/20 Chief Complaint: Right sided abdominal and flank pain History of Present Illness: The patient is a 39 M history of prior kidney stone in February. Also hypertension. Patient states that he had sudden onset right sided abdominal pain this morning. He denies any nausea or vomiting. No fever or chills. No dysuria or hematuria. He has had mild constipation but had a normal bowel movement 1 to 2 days ago. Denies any melena. Physical Examination: Middle-aged male no acute distress initial blood pressure 160/112. Afebrile. Does not look septic or toxic. H EENT exam unremarkable. Neck nontender. Lungs clear to auscultation bilaterally. Heart regular rhythm no murmur. Abdomen soft. Nondistended. Normal bowel sounds. Mild right upper right lower quadrant tenderness. No peritoneal signs. No hernia or mass. No signs of obstruction. Extremities moves all 4. Neurovascular intact. No edema. Back nontender. No CVA tenderness. Neurologically is awake alert with no focal motor loss. Test Results: CBC shows a white count of 12.7 hemoglobin 16. No bands. Chemistries unremarkable gap of 5 creatinine 1.1. Liver enzymes normal. UA normal. No signs of blood or infection. CT abdomen pelvis without contrast shows a thickened dilated appendix at 9 mm consistent with acute appendicitis as read by the radiologist and reviewed by me. No perforation. No fluid collection. All test results were discussed with the patient. Emergency Department Course and Treatment: Patient is driving is treated with IV Toradol. Concern is right-sided abdominal pain differential would include acute kidney stone versus UTI versus appendicitis or gallbladder disease. Most likely is kidney stone. CAT scan and labs are pending. Treatment Plan: After the diagnosis of acute appendicitis patient was started on IV Zosyn. Currently his pain is well controlled with a single dose of Toradol. I have the general surgeon self contained behavior unit teacher on page. Disposition: Discharge Impression: Acute right-sided abdominal pain secondary to acute appendicitis This note was generated with [employer] dictation software. It may contain incorrect words, spelling, and punctuation that were not noted in review of the chart prior to signing ED Disposition - Plan for ED Patient: Referrals: Care Physician,No Primary [Primary Care Provider] -
[2020-08-21] MEDS: 0.9% Normal Saline 1,000 ML 1000 ML IV (13:29)
[2020-08-21] MEDS: Ketorolac 30 MG/ML Syringe IV (13:30)
[2020-08-21 13:31] LABS: Absolute Lymphocyte Count 1.81 X10^3/uL (0.83-4.51); Absolute Neutrophil Count 9.2 X10^3/uL (2.0-7.7); Basophil# 0.09 X10^3/uL; Basophil% 0.7 % (0-1); Eosinophil# 0.33 X10^3/uL; Eosinophils% 2.6 % (0-5); Hematocrit 48.3 % (40-54); Hemoglobin 16.4 g/dL (13.0-16.5); Lymphocyte # 1.81 X10^3/ul (4.0); Lymphocyte % 14.2 % (19-41); Mean Corpuscular Hgb 27.8 pg (27.0-32.0); Mean Corpuscular Volume 81.9 fL (80-94); Mean Platelet Vol. 9.2 fl (6.2-12.0); Monocyte# 1.19 X10^3/uL; Monocyte% 9.4 % (0-10); NRBC Flagged by Analyzer 0 % (0-5); Neutrophil % 72.3 % (47-70); Platelet Count 274 K/mm3 (150-450); RBC Distribution Width CV 12.4 % (11.6-14.6); RBC Distribution Width SD 36.6 fl (35.1-43.9); White Blood Count 12.7 K/mm3 (4.4-11.0)
[2020-08-21 13:36] LABS: ALB/GLOB Ratio 1.1 RATIO (0.9-2.4); AST(SGOT) 16 U/L (15-37); Alanine Aminotransfer ALT/SGPT 38 U/L (16-61); Albumin, Serum 3.9 g/dL (3.2-5.0); Alkaline Phosphatase 55 U/L (45-117); Anion Gap 5 (5-15); BUN 17 mg/dL (7-18); BUN/Creat Ratio 14.4 RATIO (10-20); Calcium,Total 8.9 mg/dL (8.5-10.1); Chloride 104 mmol/L (98-107); Creatinine, Serum 1.18 mg/dL (0.70-1.30); EST Glomerular Filtration Rate 73 mL/min (>60); Est Glom Filt Rate - Afr Amer 88 mL/min (>60); Estimated Creatinine Clearance 84.88 ml/min; Globulin 3.6 g/dL (2.2-4.2); Glucose 99 mg/dL (74-106); Potassium 4.1 mmol/L (3.5-5.1); Protein, Total 7.5 g/dL (6.4-8.2); Sodium Level 139 mmol/L (136-145)
[2020-08-21 13:44] LABS: Bacteria 0 SEEN /hpf (None Seen); Mucous, Urine 0 SEEN /hpf (<or=2+); Red Blood Cells-Urine 0 SEEN /hpf (0-5); Squamous Epithelial Cells - UA 0 SEEN /hpf (0-5); White Blood Cells 0 SEEN /hpf (0-5)
[2020-08-21 13:57] LABS: Color, Urine Yellow (Yellow); Glucose, Dipstick Normal (Normal); Ketone-Dipstick Negative (Negative); Leukocyte Esterase-Dipstick Negative /ul (Negative); Nitrite-Dipstick Negative (Negative); Occult Blood-Urine Negative /ul (Negative); Protein-Dipstick Negative (Negative); Specific Gravity, Urine 1.015 (1.002-1.030); Urine Bilirubin Dipstick Negative (Negative); Urine Clarity Clear (Clear); Urine Urobilinogen Normal (Normal)
--- NOTE | 2020-08-21 15:28 | EKG12_ITS ---
Test Reason : FLANK PAIN Blood Pressure : / mmHG Vent. Rate : 070 BPM Atrial Rate : 070 BPM P-R Int : 166 ms QRS Dur : 072 ms QT Int : 376 ms P-R-T Axes : 008 055 027 degrees QTc Int : 406 ms Normal sinus rhythm Normal ECG When compared with ECG of 10-MAR-2020 13:33, Nonspecific T wave abnormality, improved in Inferior leads T wave inversion no longer evident in Lateral leads Confirmed by JOSE HA, CARLITOS ([id number]), manager editorial TITO GERARDO ([id number]) on 09/06/2020 11:23:24 AM Referred By: DORIAN Confirmed By:MARY GARCIA MD
--- NOTE | 2020-08-21 16:23 | PCM.HP.STD ---
Problem List (1) Acute appendicitis Status: Acute Qualifiers: Acute appendicitis type: unspecified acute appendicitis type Qualified Code(s): K35.80 - Unspecified acute appendicitis History of Present Illness Date of Admission: 08/21/20 The patient is a 39 year old M presented to the emergency room with right upper quadrant pain. He reports that the pain woke him up this morning. He is not having any nausea or vomiting. The pain is in the right lower quadrant and does not radiate. He has no fevers or chills. He has no Covid contacts or cough or shortness of breath. Past Medical History Medical History: Medical History (Last Reviewed 03/10/20 @ 13:[address] Eliezer Bettencourt MD) Arthritis M19.90 Gout M10.9 Severe headache R51 HTN (hypertension) I10 Allergies bee venom protein (honey bee) Allergy (Verified 08/21/20 13:00) Hives venom-wasp Allergy (Verified 08/21/20 13:00) Hives Home Medications: Ambulatory Orders Medication Instructions Recorded Losartan Potassium [Cozaar] 50 mg PO BID #60 tab 03/04/20 Amlodipine [Norvasc] 5 mg PO QHS 03/09/20 Hydrochlorothiazide [Hctz] 25 mg PO DAILY 08/21/20 Metoprolol Tartrate [Lopressor 50 mg PO DAILY 08/21/20 (beta jethro)] Surgical History: Surgical History (Last Reviewed 03/03/20 @ 10:[address] 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 Denies: Constipation, Diarrhea, Hematemesis, Hematochezia, Nausea, Vomiting Genitourinary: Denies: Dysuria Musculoskeletal: Denies: Joint Tenderness Skin: Denies: Jaundice Neurological: Denies: Balance problems Psychiatric: Denies: Anxiety Hematologic/ Lymphatic: Denies: Anemia VTE Information - Inpt Only VTE Present on Admission: No VTE Mechan Device Prophylaxis: SCD's - Physical Exam Vitals/I&O's: Vital Signs Temp Pulse Resp BP Pulse Ox 98.4 F 72 18 138/83 H 97 08/21/20 15:48 08/21/20 15:48 08/21/20 15:48 08/21/20 15:48 08/21/20 15:48 Oxygen Delivery Method Room Air Weight: 309 lb 1.409 oz Body Mass Index (BMI) 45.6 Intake and Output for Last 24 Hours 08/19/20 08/20/20 08/21/20 23:59 23:59 23:59 Intake Total 1100 / 1100 Balance 1100 / 1100 General: Alert, Oriented x3 Neck: No JVD Lungs: Clear to auscultation, Normal air movement Cardiovascular: Regular rate, Regular Rhythm Abdomen: Soft, Non-Distended, Tender - Tender in the right lower quadrant Musculoskeletal: No Muscle Wasting Neurological: Cranial nerves II-XII grossly intact Psych/Mental Status: Normal Affect Microbiology Past 72 Hours 08/21/20 15:15 Mucosa - Nose SARS-CoV-2 Antigen (Rapid) - Final Laboratory Results 08/21/20 13:05: WBC 12.7 H, RBC 5.90, Hgb 16.4, Hct 48.3, MCV 81.9, MCH 27.8, MCHC 34.0, RDW Std Deviation 36.6, RDW Coeff of Mariann 12.4, Plt Count 274, MPV 9.2, Immature Gran % (Auto) 0.800, Neut % (Auto) 72.3 H, Lymph % (Auto) 14.2 L, [place] % (Auto) 9.4, Eos % (Auto) 2.6, Baso % (Auto) 0.7, Absolute Neuts (auto) 9.2 H, Absolute Lymphs (auto) 1.81, Nucleated RBC % 0 08/21/20 13:05: Sodium 139, Potassium 4.1, Chloride 104, Carbon Dioxide 30.0, Anion Gap 5, BUN 17, Creatinine 1.18, Estim Creat Clear Calc 84.88, Est GFR (MDRD) Af Amer 88, Est GFR (MDRD) Non-Af 73, BUN/Creatinine Ratio 14.4, Glucose 99, Calcium 8.9, Total Bilirubin 0.90, AST 16, ALT 38, Alkaline Phosphatase 55, Total Protein 7.5, Albumin 3.9, Globulin 3.6, Albumin/Globulin Ratio 1.1 08/21/20 13:40: Urine Color Yellow, Urine Clarity Clear, Urine pH 6.0, Ur Specific [place] 1.015, Urine Protein Negative, Urine Glucose (UA) Normal, Urine Ketones Negative, Urine Occult Blood Negative, Urine Nitrite Negative, Urine Bilirubin Negative, Urine Urobilinogen Normal, Ur Leukocyte Esterase Negative, Urine RBC 0 SEEN, Urine WBC 0 SEEN, Ur Squamous Epith Cells 0 SEEN, Urine Bacteria 0 SEEN, Urine Mucus 0 SEEN Clinical Impression(s) from Imaging Studies Abdomen/Pelvis CT 08/21/20 13:15 IMPRESSION: 1. Appendicitis. No focal fluid collection or pneumoperitoneum. 2. Nonobstructing bilateral renal calculi. No hydronephrosis or ureteral calculi. Electronically Signed: Wolf Caraballo MD ([place]) at 14:13 EST , Service support , Assessment/Plan All Active Problems (Last Reviewed 03/10/20 @ 13:[address] Eliezer Bettencourt MD) Right ureteral calculus (Acute) Accelerated hypertension (Acute) Acute appendicitis (Acute) Closed right tibial fracture (Resolved) Sprain of unspecified ligament of right ankle, initial encounter (Resolved) Abrasion, right ankle, initial encounter (Resolved) Contusion of right hand, initial encounter (Acute) Injury of head (Resolved) 39-year-old male with acute appendicitis 1. I discussed his diagnosis with him as well as the CAT scan results. I discussed laparoscopic appendectomy with him as well. I discussed the risks including not limited to bleeding, infection, injury to surrounding organs such as the bowel, bladder, ureter. The patient understands the risks and is willing to proceed with surgery. He was given Zosyn in the emergency room and a Covid test was negative. Patient is on several antihypertensive medications and his blood pressure has been noted. Cresencio Combs MD Pager: [facility] [address] [place] [address], [address] [place] [address] Office:
--- NOTE | 2020-08-21 17:45 | OP.PCM_ITS ---
Problem List (1) Acute appendicitis Status: Acute Qualifiers: Acute appendicitis type: unspecified acute appendicitis type Qualified Code(s): K35.80 - Unspecified acute appendicitis Report of Operation Date of Procedure: 08/21/20 Pre-Operative Diagnosis: Acute appendicitis Post-Operative Diagnosis: Same Surgery/Procedure Performed:: Laparoscopic appendectomy Description of Procedure: The patient was brought into the operating room and general anesthesia was induced. The left arm was tucked and the abdomen was prepped and draped in usual sterile fashion. A small midline incision was made superior to the umbilicus and deepened to the level of the fascia. The fascia was elevated and incised. The peritoneum was also elevated and incised. A finger sweep was performed and a balloon trocar was placed into the abdomen and inflated. The abdomen was insufflated to 15 mmHg and the camera was inserted and the abdomen was inspected for any injuries upon entering the abdomen. There were none. The patient was placed in Trendelenburg position and a 5 mm ports placed in the left lower quadrant and suprapubic areas under direct visualization. Next using atraumatic bowel graspers the appendix was identified. The appendix was grasped and elevated and Enseal was used to take down the mesoappendix. A stapler was used to come across the base of the appendix. The appendix was then placed in Endo Catch bag and removed through the umbilical incision. The staple line was inspected and found to be hemostatic and intact. The 2 5 mm ports are removed under direct visualization. The balloon trocar was deflated and removed and all the air was removed from the abdomen. The umbilical incision fascia was closed with an 0 Vicryl [id number] suture. The incisions were then irrigated with saline and dried. Local anesthetic was injected into the incision sites. The skin incisions were then closed with interrupted 4-0 Monocryl suture and Steri- Strips. Bandages were applied and the patient was awoken and taken to PACU in stable condition. Patient tolerated the procedure well. - Admit VTE Documentation VTE Mechan Device Prophylaxis: SCD's
[2020-08-21] MEDS: 0.9% Normal Saline 1,000 ML 60 ML IV ×2 (18:01→18:13)
[2020-08-21] MEDS: oxyCODONE 5 MG Tablet PO ×2 (19:39→23:48)
[2020-08-21] MEDS: Acetaminophen 325 MG Tablet 650 MG PO ×2 (19:40→23:49)
[2020-08-21] MEDS: amLODIPine 5 MG Tablet PO (21:05)
[2020-08-21] MEDS: Losartan Potassium 50 MG Tablet PO (21:05)
--- NOTE | 2020-08-21 22:04 | NURSING ---
Covid 19 emergency charting in effect.
[2020-08-22 02:53] VITALS: BP 150/78; PULSE 80; RESP 16; TEMP 36.6; O2SAT 92
[2020-08-22] MEDS: Acetaminophen 325 MG Tablet 650 MG PO (03:56)
[2020-08-22] MEDS: oxyCODONE 5 MG Tablet PO ×2 (03:56→11:04)
[2020-08-22 06:01] VITALS: BP 151/83; PULSE 94; RESP 16; TEMP 36.6; O2SAT 94
--- NOTE | 2020-08-22 08:05 | PN.SURG_ITS ---
Patient Problems: Active and Suspected Problems (Last Reviewed 03/10/20 @ 13:[address] Eliezer Bettencourt MD) Acute appendicitis (Acute) Subjective: Patient doing well with no nausea or vomiting. Pain is well controlled. - Physical Exam Vitals/I&O's: Vital Signs Temp Pulse Resp BP Pulse Ox 97.8 F 94 16 151/83 H 94 08/22/20 06:01 08/22/20 06:01 08/22/20 06:01 08/22/20 06:01 08/22/20 06:01 Oxygen Flow Rate (L/min) 2 Oxygen Delivery Method Nasal Cannula Weight: 310 lb 3.046 oz Body Mass Index (BMI) 45.8 Intake and Output for Last 24 Hours 08/20/20 08/21/20 08/22/20 23:59 23:59 23:59 Intake Total 1912 / 1912 500 / 500 Output Total 275 / 275 225 / 225 Balance 1637 / 1637 275 / 275 General: Alert, Oriented x3 Lungs: Normal air movement Cardiovascular: Regular rate, Regular Rhythm Abdomen: Soft, Non-Distended Microbiology Past 72 Hours 08/21/20 15:15 Mucosa - Nose SARS-CoV-2 Antigen (Rapid) - Final Laboratory Results 08/21/20 13:05: WBC 12.7 H, RBC 5.90, Hgb 16.4, Hct 48.3, MCV 81.9, MCH 27.8, MCHC 34.0, RDW Std Deviation 36.6, RDW Coeff of Mariann 12.4, Plt Count 274, MPV 9.2, Immature Gran % (Auto) 0.800, Neut % (Auto) 72.3 H, Lymph % (Auto) 14.2 L, [place] % (Auto) 9.4, Eos % (Auto) 2.6, Baso % (Auto) 0.7, Absolute Neuts (auto) 9.2 H, Absolute Lymphs (auto) 1.81, Nucleated RBC % 0 08/21/20 13:05: Sodium 139, Potassium 4.1, Chloride 104, Carbon Dioxide 30.0, Anion Gap 5, BUN 17, Creatinine 1.18, Estim Creat Clear Calc 84.88, Est GFR (MDRD) Af Amer 88, Est GFR (MDRD) Non-Af 73, BUN/Creatinine Ratio 14.4, Glucose 99, Calcium 8.9, Total Bilirubin 0.90, AST 16, ALT 38, Alkaline Phosphatase 55, Total Protein 7.5, Albumin 3.9, Globulin 3.6, Albumin/Globulin Ratio 1.1 08/21/20 13:40: Urine Color Yellow, Urine Clarity Clear, Urine pH 6.0, Ur Specific [place] 1.015, Urine Protein Negative, Urine Glucose (UA) Normal, Urine Ketones Negative, Urine Occult Blood Negative, Urine Nitrite Negative, Urine Bilirubin Negative, Urine Urobilinogen Normal, Ur Leukocyte Esterase Negative, Urine RBC 0 SEEN, Urine WBC 0 SEEN, Ur Squamous Epith Cells 0 SEEN, Urine Bacteria 0 SEEN, Urine Mucus 0 SEEN Current Medications Acetaminophen (Acetaminophen 325 Mg Tablet) 650 mg PO Q4H PRN PRN PRN Reason: Pain 1-10 or Fever Last Admin: 08/22/20 03:56 Dose: 650 mg Documented by: Amlodipine Besylate (Amlodipine 5 Mg Tablet) 5 mg PO QHS [facility] Last Admin: 08/21/20 21:05 Dose: 5 mg Documented by: Hydrochlorothiazide (Hydrochlorothiazide 25 Mg Tablet) 25 mg PO DAILY [facility] Sodium Chloride () 1,000 mls @ 60 mls/hr IV .[id number] [facility] Last Admin: 08/21/20 18:13 Dose: 60 mls/hr Documented by: Losartan Potassium (Losartan Potassium 50 Mg Tablet) 50 mg PO BID [facility] Last Admin: 08/21/20 21:05 Dose: 50 mg Documented by: Metoprolol Tartrate (Metoprolol Tartrate 50 Mg Tablet) 50 mg PO BID [facility] Morphine Sulfate (Morphine 2 Mg/Ml Syringe) 2 - 4 mg IV Q2H PRN PRN PRN Reason: Pain Score 4-10 Morphine Sulfate (Morphine 4 Mg/Ml Syringe) 2 - 4 mg IV Q2H PRN PRN PRN Reason: Pain Score 4-10 Ondansetron HCl (Ondansetron 4 Mg/2 Ml Vial) 4 mg IV Q6H PRN PRN PRN Reason: NAUSEA Oxycodone HCl (Oxycodone 5 Mg Tablet) 5 - 10 mg PO Q4H PRN PRN PRN Reason: Pain Score 4-10 Last Admin: 08/22/20 03:56 Dose: 10 mg Documented by: Sodium Chloride (0.9% Saline Lock 10 Ml Syringe) 10 - 40 ml IV UD PRN PRN Reason: SALINE FLUSH Medical Necessity - Tobacco Use Smoking Status: Never smoker Assessment/Plan All Active Problems (Last Reviewed 03/10/20 @ 13:[address] Eliezer Bettencourt MD) Right ureteral calculus (Acute) Accelerated hypertension (Acute) Acute appendicitis (Acute) Closed right tibial fracture (Resolved) Sprain of unspecified ligament of right ankle, initial encounter (Resolved) Abrasion, right ankle, initial encounter (Resolved) Contusion of right hand, initial encounter (Acute) Injury of head (Resolved) 39-year-old male with acute appendicitis status post laparoscopic appendectomy 1. Patient is doing well and tolerating diet. Will discharge home this morning. Cresencio Combs MD Pager: [facility] [address] [place] [address], [address] [place] [address] Office:
--- NOTE | 2020-08-22 08:08 | DCINST_ITS ---
Discharge Diet: Light diet - advance as tolerated Discharge Activity: May Not Drive - for 3-5 days or while taking narcotic pain meds., May Shower Lifting Restrictions: 20 lbs for 2 weeks Call your doctor if your incision/area has: Continuous Slow Oozing, Sudden Increased Bleeding, Increased Pain/ Swelling, Increased Redness, Foul Smelling Discharge Call your doctor if you observe: Fever of 101 or Higher Suture Line Care: Avoid Pulling/Pushing, Avoid Pinching/Bending Additional Dressing/Incision Instructions:: Keep dressing clean and dry. Change or remove dressing in 2 days. Leave steri strips for 1 week. May protect with a gauze bandaid. Medications to take at Discharge Losartan Potassium [Cozaar] 50 mg PO BID #60 tab 03/04/20 Amlodipine [Norvasc] 5 mg PO QHS 03/09/20 Hydrochlorothiazide [Hctz] 25 mg PO DAILY 08/21/20 Metoprolol Tartrate [Lopressor (beta jethro)] 50 mg PO BID 08/21/20 Acetaminophen [Tylenol Tablet] 650 mg PO Q4H PRN PRN tablet 08/22/20 Oxycodone [Oxyir] 5 - 10 mg PO Q4H PRN PRN 5 Days #20 tablet 08/22/20 Allergies/Adverse Reactions: Allergies bee venom protein (honey bee) Allergy (Verified 08/21/20 13:00) Hives venom-wasp Allergy (Verified 08/21/20 13:00) Hives The following prescriptions were given: Oxycodone [Oxyir] 5 - 10 mg PO Q4H PRN PRN 5 Days #20 tablet PRN Reason: Pain Score 4-10 Transmission Status: Received by [facility] #[id number] Primary Care Physician: Care Physician,No Primary [Primary Care Provider] - Test Results: Test results from this visit will be discussed in further detail at your follow- up appointment, if applicable. Please Follow Up With: Cresencio Combs MD When: Please call to schedule 2 week follow up appointment. [phone]
[2020-08-22] MEDS: Losartan Potassium 50 MG Tablet PO (10:14)
[2020-08-22] MEDS: hydroCHLOROthiazide 25 MG Tablet PO (10:14)
[2020-08-22 10:17] VITALS: PULSE 82
[2020-08-22] MEDS: Metoprolol Tartrate 50 MG Tablet PO (10:17)
[2020-08-22 10:47] VITALS: BP 178/105; PULSE 78; RESP 18; TEMP 36.6; O2SAT 96
== END 2020-08-22 11:08 | disposition home or self-care (01) ==
LOC: ED 13:26 → SDC 16:03 → MS3 16:03 → SDC 20:43 → MS3 20:43
PROVIDERS: Admitting Provider Surgery; Emergency Provider Emergency Medicine; Visit Provider Surgery
PROC: 0DTJ4ZZ Resection of Appendix, Percutaneous Endoscopic Approach (ICD-10-PCS; CPT 44970; principal; 2020-08-21 16:00)
DX: K35.80 Unspecified acute appendicitis (principal); M19.90 Unspecified osteoarthritis, unspecified site; I10 Essential (primary) hypertension; Z87.442 Personal history of urinary calculi; Z79.899 Other long term (current) drug therapy; Z86.718 Personal history of other venous thrombosis and embolism; K21.9 Gastro-esophageal reflux disease without esophagitis
CPT/HCPCS: 00840; 44970; 74176; 80053; 81001; 85025; 87426; 88304; 93005; 96365; 96375; 99218; 99251; 99284; J7030; A4216; C1760; G0378; G0463; J2405

== ENCOUNTER → 2020-09-02 06:21 | Outpatient (CLI) | payer OTHER, BC, SELFPAY ==
[2020-08-21 18:58] VITALS: BMI 45.8
--- NOTE | 2020-09-02 06:40 | MRI_ITS ---
STUDY: MRI RIGHT ANKLE WITHOUT CONTRAST REASON FOR EXAM: Continued posterior heel pain, right ankle sprain in May 2019. TECHNIQUE: Standardized fat and water weighted pulse sequences were obtained in all 3 orthogonal planes. COMPARISON: MRI images 07/08/2019. FINDINGS: There is edema in the medial and lateral subcutis adipose space. There is a very small volume of fluid in the submalleolar posterior tibialis tendon sheath (inversion recovery sagittal images 19, 20). The posterior tibialis tendon is morphologically normal. Normal flexor digitorum longus tendon. Normal flexor hallucis longus tendon. Normal peroneus longus and brevis tendons. Normal tibialis anterior tendon. Normal extensor hallucis longus tendon. Normal extensor digitorum longus tendons. There is a chronic avulsion fracture of the posterior tuberosity of the calcaneus at the calcaneal insertion with osseous bridging at the lateral aspect (T1 sagittal images 10, 11) and very mild residual bone edema at the fracture site (inversion recovery sagittal images 10-14). There is mild tendinosis of the distal Achilles tendon (inversion recovery sagittal images 12-14) without tendon tear. Normal plantar fascia. Normal plantar calcaneal tubercles. Normal intrinsic muscles of the rearfoot. Normal distal tibiofibular syndesmotic ligamentous complex. There is chronic tear of the talofibular ligament (T2 axial image 15) as on the prior study. Normal calcaneofibular and posterior talofibular ligaments. Normal subtalar ligaments and sinus tarsi. Normal deltoid ligamentous complexes. Normal plantar calcaneonavicular (spring) ligament. There is interval development of a subtle osteochondral lesion of the lateral aspect of the superior talar dome (T1 sagittal image 9) measuring 0.7 cm in AP dimension with mild bone edema of the fragment (inversion recovery sagittal image 8) without MRI manifestations of fragment instability. There is no residual fracture deformity of the distal tibia. Normal subtalar articulations. Normal talonavicular articulation. Normal calcaneocuboid articulation. Normal navicular-cuneiform articulations. MRI/Lower Ext Joint Only (Routine) IMPRESSION: Chronic avulsion fracture of the posterior tuberosity of the calcaneus with osseous bridging at the lateral aspect. Mild distal Achilles tendinosis without demonstrated tendon tear. Chronic tear of the anterior talofibular ligament. Subtle osteochondral lesion of the lateral talar dome. Very mild posterior tibialis tenosynovitis. Electronically Signed: Stephen Reeder MD at 8:31 EST Tel , Service support ,
== END ==
PROVIDERS: Referring Provider Podiatrist; Visit Provider Podiatrist
DX: S82.391A Other fracture of lower end of right tibia, initial encounter for closed fracture (principal); S93.401A Sprain of unspecified ligament of right ankle, initial encounter; S90.511A Abrasion, right ankle, initial encounter
CPT/HCPCS: 73721

== ENCOUNTER 2020-11-29 21:48 | Emergency (ER) | payer OTHER, BC, SELFPAY ==
[2020-08-21 18:58] VITALS: BMI 45.8
[2020-11-29 21:48] VITALS: BP 162/100; PULSE 83; RESP 18; TEMP 35.5; O2SAT 96; BMI 45.6
--- NOTE | 2020-11-29 23:03 | ED.RN ---
PATIENT IS [employer], COMPANY IN NOT IN OUR DATABASE. PATIENT WILL FOLLOW UP WITH EMPLOYER IN THE AM FOR DRUG SCREEN
--- NOTE | 2020-11-29 23:06 | ED.DCSUM_ITS ---
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 Patient states he felt his pants at that time and there was no blood. It did not appear to break through his jeans. When he got home he noticed that he had bruising. He does not have any redness surrounding the area. Is minimally tender. Past Medical History - Allergies and Home Meds Allergies/Adverse Reactions: Allergies bee venom protein (honey bee) Allergy (Verified 11/29/20 21:50) Hives venom-wasp Allergy (Verified 11/29/20 21:50) Hives Primary Care Physician: Donnie Reed MD [Primary Care Provider] - Prior records reviewed: Yes Past Medical History: - - Retention, renal calculi Surgical History: noncontributory, - - Orthopedic surgery Lives: Spouse/ Significant Other Smoking Status: Never smoker Alcohol: None Drugs: None Review of Systems General: Denies: Chills, Fever, Sweats Eyes: Denies: Visual changes - bilaterally, Diplopia ENT: Denies: Rhinorrhea, Sore throat Cardiovascular: Denies: Chest pain, Palpitations Respiratory: Denies: Dyspnea, Cough, Dyspnea on exertion Gastrointestinal: Denies: Abdominal pain, Nausea, Vomiting, Diarrhea, Melena, Hematochezia Genitourinary: Denies: Dysuria, Hematuria, Frequency Skin: Reports: Wounds - Circular wound consistent with dog bite on right buttocks. Denies: Rash Neurological: Denies: Headache, Weakness, Numbness Psych: Denies: Depression, Anxiety, Suicidal thoughts, Suicidal ideations, -, - Physical Exam Vital Signs/Narrative: Vital Signs Temp Pulse Resp BP Pulse Ox 11/29/20 21:48 95.9 F L 83 18 162/100 H 96 Inital Vital Signs reviewed: Yes General: Well nourished, No Acute Distress Head: Normocephalic, Atraumatic Eyes: Perrl, EOMI Cardiovascular: Regular rate, Regular rhythm Respiratory: No distress, CTA bilaterally Skin: - - Circular wound consistent with dog bite on right buttocks. No surrounding erythema. No increased warmth.. Negative for: No rash, Cyanosis, Diaphoresis Neurological: Alert, Oriented x3 Psychological: Normal affect, Normal Mood Diagnostic/Tx/Re-eval - Medical Decision Making 40-year-old male presenting with dog bite to the right buttocks. He states that it did not break through the jeans but he does have a bruising pattern and some small superficial punctate areas where the dog may have broken through. He has no active bleeding. No sign of cellulitis. Low suspicion for rabies at this time. Patient was started on Augmentin with first dose in the ED. He is counseled on wound care and monitoring for signs worsening infection. Impression: 1 dog bite right buttocks ED Disposition - Plan for ED Patient: Disposition: Home or Assisted Living Instructions: ED Dog Bite Referrals: Donnie Reed MD [Primary Care Provider] -
[2020-11-29 23:40] VITALS: BP 140/84; PULSE 74; RESP 16; O2SAT 94
[2020-11-29] MEDS: Amox/Clavulanate 875 MG Tablet PO (23:40)
== END 2020-11-30 00:11 | disposition home or self-care (01) ==
PROVIDERS: Emergency Provider Student in an Organized Health Care Education/Training Program; PCP Internal Medicine
DX: S30.870A Other superficial bite of lower back and pelvis, initial encounter (principal); W54.0XXA Bitten by dog, initial encounter; Y93.9 Activity, unspecified; Y92.9 Unspecified place or not applicable
CPT/HCPCS: 99283

== ENCOUNTER 2021-11-27 10:49 | Emergency (ER) | payer BC, SELFPAY ==
[2021-11-27 10:51] VITALS: BP 157/104; PULSE 70; RESP 17; TEMP 36.9; O2SAT 96; BMI 45.6
--- NOTE | 2021-11-27 11:13 | ED.VIS.DENTA ---
HPI History of Present Illness Chief Complaint: Dental Narrative Narrative: 41-year-old male presenting with dental pain. He states he cracked his tooth about 2 months ago and had not had any problems with it until last couple of days. He called his dentist this morning who cannot see him for about 3 weeks. He states he called an emergency dentist who did not have any availability. He did a televisit with another physician who told him to come to the emergency room. Patient has not been on antibiotics previously for this dental pain. No trouble swallowing or breathing. He does note that he has had some swelling to the left side of his cheek. No fever. [facility] Medical History Arthritis Gout HTN (hypertension) Severe headache Home Medications losartan 50 mg PO BID #60 tablet 03/04/20 [Rx Last Taken 08/21/20 10:00] amlodipine 10 mg PO QHS 03/09/20 [History Last Taken Unknown] hydrochlorothiazide 25 mg PO DAILY 08/21/20 [History Last Taken Unknown] metoprolol tartrate 50 mg PO BID 08/21/20 [History Last Taken 08/21/20 10:00] omeprazole 40 mg capsule,delayed release 40 mg PO DAILY 12/03/20 [History Last Taken Unknown] phentermine 37.5 mg capsule 37.5 mg PO DAILY 12/03/20 [History Last Taken Unknown] amoxicillin-pot clavulanate 1 tab PO BID #20 tab 11/27/21 [Rx Last Taken Unknown] Allergy/AdvReac Type Severity Reaction Status Date / Time bee venom protein (honey bee) Allergy Hives Verified 11/27/21 10:50 venom-wasp Allergy Hives Verified 11/27/21 10:50 Family History Other CVA (cerebral vascular accident) Diabetes Gout Heart disease Hypertension Lung cancer Surgical History Fibrous dysplasia (monostotic), other site History of appendectomy (~08/2020) History of nephrolithotomy with removal of calculi Social History Smoking Status: Never smoker alcohol intake: current Alcohol type: beer and hard liquor ROS ROS ED Constitutional Constitutional ED: Denies fever(s) Eyes Eyes: Denies blurry vision ENT ENT ED: Reports other Details: Dental pain ; Denies rhinorrhea or sore throat Cardiovascular Cardiovascular: Denies chest pain or palpitations Respiratory/Chest Respiratory/Chest: Denies cough or dyspnea Gastrointestinal Gastrointestinal: Denies abdominal pain, nausea or vomiting Genitourinary Genitourinary ED: Denies dysuria or hematuria Musculoskeletal Musculoskeletal: Denies arthralgias or myalgias Integumentary Denies rash Neurologic Neurologic: Denies headache(s) EXAM Physical Exam Const Vital Signs: 11/27/21 10:51 Temperature 98.5 F Temperature Source Temporal Pulse Rate 70 Respiratory Rate 17 Blood Pressure 157/104 H Blood Pressure Mean 121 Pulse Ox 96 Oxygen Delivery Method Room Air General Appearance ED: NAD HEENT HEENT Narrative: Slight swelling in the left cheek. Tooth #13 appears to be cracked and decayed. There is tenderness focally here. No swelling of the gingiva or drainage. Buccal mucosa normal. Oropharynx patent without stridor. No sublingual edema. No submandibular fullness. No lymphadenopathy. Negative for trauma Eyes PERRL and EOMs intact bilaterally Neck no lymphadenopathy and supple Resp normal respiratory effort Cardio regular rate and regular rhythm Neuro oriented x3 Sensorium / Orientation: alert Psych mental status grossly normal Skin no wounds MDM MDM MDM Narrative Medical decision making narrative: Patient presenting with dental fracture and now is decaying. He is had pain for a couple of days and was referred to the emergency room because his dentist cannot see him right away. No signs of Josh's angina. Oropharynx pink without stridor. Tongue not swollen. No sublingual edema. It is noted the patient has some swelling on the left cheek. Patient will be started on Augmentin in the ED. He is given a prescription for this for home. He was given a dental referral sheet. He is given return precautions. Impression: 1. Dental fracture 2. Dental infection Discharge Plan Triage Chief Complaint: Dental ED Provider: [place] Dx/Rx/DC Orders Instructions: ED Dental Pain, ED Dental Trauma Prescriptions: New amoxicillin-pot clavulanate 875-125 mg tablet 1 tab PO BID Qty: 20 RF: 0 No Action omeprazole 40 mg capsule,delayed release(DR/EC) 40 mg PO DAILY RF: 0 phentermine 37.5 mg capsule 37.5 mg PO DAILY RF: 0 losartan 50 MG tablet 50 mg PO BID Qty: 60 RF: 2 amlodipine 10 MG tablet 10 mg PO QHS RF: 0 hydrochlorothiazide 25 MG tablet 25 mg PO DAILY RF: 0 metoprolol tartrate 50 MG tablet 50 mg PO BID RF: 0 Primary Care Provider: Donnie Reed Referrals: Donnie Reed MD [Primary Care Provider] -
[2021-11-27] MEDS: Amox/Clavulanate 875 MG Tablet PO (11:23)
== END 2021-11-27 11:26 | disposition home or self-care (01) ==
PROVIDERS: Emergency Provider Student in an Organized Health Care Education/Training Program; PCP Internal Medicine; Visit Provider Student in an Organized Health Care Education/Training Program
DX: S02.5XXA Fracture of tooth (traumatic), initial encounter for closed fracture (principal); K04.7 Periapical abscess without sinus; I10 Essential (primary) hypertension; X58.XXXA Exposure to other specified factors, initial encounter; Y93.9 Activity, unspecified; Y92.9 Unspecified place or not applicable; Z79.899 Other long term (current) drug therapy; M10.9 Gout, unspecified; M19.90 Unspecified osteoarthritis, unspecified site
CPT/HCPCS: 99283